=== PATIENT | male | born 1955 | race Caucasian/White ===

== ENCOUNTER 2016-08-17 13:22 | Outpatient (RCR) | payer MEDICARE, BC ==
[~2016-08-17 13:22] MED LIST: /MOXI40TA PO; ADVA230INH INH; ALB2.5NEB NEB; ALBU17IN INH; ALBU83IN INH; ALPR0.25 PO; ASPI81TA85 PO; ATOR1TAB21 PO; AUGM500T34 PO; AZIT250T3 PO; BUDE0.5S IN; BUDEPOW INH; CEFT500T3 PO; CEFU500T2 PO; CIAL5TAB PO; CLOT10TR MT; DIGO0.12 PO; FLUC10TA PO; GLUC500T PO; LEVA750T PO; LEVO500T PO; LEVO750T PO; LIPI20TA PO; LOTR52CA PO; METF500T PO; METO12TA PO; METO25TAB PO; MUCI600T34 PO; NITR4TASL SL; NYST50SS SS; ONETAB4 PO; PRED10PA PO; PRED10PA2 PO; PRED10TA PO; PRED10TA2 PO; PRED1TAB32 PO; PULM0.5S INH; PULM1SUS INH; SIMV20TA2 PO; SPIR1CAP IN; SYMB16INH INH; TIOTROPIUM INH; WELLTAB38 PO; XANA0.25 PO; XOPEAER IN; [UNRECOGNIZED DRUG - OTHER] INH; albuterol nebulizer INH
--- NOTE | 2016-09-13 09:53 | RADONC ---
RADIATION ONCOLOGY PROGRESS NOTE DATE: 09/12/2016 CHART NUMBER: [id number]. Mr. White has received a course of radiation therapy to his tonsil and oral cavity, which was just completed in November of 2015. Prior to initiation of radiation, less than a year ago, I sent the patient to his dentist and made clear to him, which is documented in the notes, in no uncertain terms the need for all dental work to be completed prior to initiation of radiation. We had discussed the risks of doing extraction following completion of radiation. The patient at that time then went to see his dental home care specialist and reported back to us that his teeth were in general good condition and there would be no foreseeable need for extraction in the near future. Because of this, we started radiation on 10/04/2015 and treated him through 11/21/2015, for a dose of 7000 cGy. Approximately a week or so ago, I received the first phone call asking me to give clearance to extract all his lower teeth. This is less than 9 months post completion of treatment. I am unclear at this point as to why, after just a few months, it is now believed he needs these extractions. I think this is highly risky. I did have a lengthy discussion with Dr. Shafer and expressed to her my concern at the risks of possible osteonecrosis, which can lead up to the need of resection of the jaw. This is particularly concerning to me in this patient because of his poor pulmonary functions. I think he would be at great risk at surgery, although of course I am not a surgeon. I expressed to Dr. Shafer my worries. Clearly, if the teeth have to be extracted and there are no options, then she needs to document clearly to the patient his risks and see if he wishes to assume that risk. I did stress however that all options should be utilized first to maintain healthy oral cavity in those teeth if possible. I am, of course, no oral surgeon and will defer to her as to her expertise with regards to overall health of these lower teeth. I expressed to her the need for great care if they do need to have some extractions done. The lower teeth would be within a rather high dose of radiation. Once again, in summary, I expressed to the patient's oral cavity physician the need for great diligence and caution in dealing with those lower teeth.
== END 2016-09-11 ==
LOC: M CR 13:22
PROVIDERS: ATTEND Internal Medicine
DX: Z51.89 Encounter for other specified aftercare (principal); J44.9 Chronic obstructive pulmonary disease, unspecified

== ENCOUNTER 2016-09-24 08:00 | Outpatient (RCR) | payer MEDICARE, BC | END 2016-10-09 | LOC: M CR 08:00 | PROVIDERS: ATTEND Internal Medicine | DX: Z51.89 Encounter for other specified aftercare (principal); J44.9 Chronic obstructive pulmonary disease, unspecified ==

== ENCOUNTER 2016-10-01 18:22 | Emergency (ER) | payer MEDICARE, BC ==
--- NOTE | 2016-10-01 20:37 | EDDOCDS ---
Physician Documentation [facility] Name: Ari White Age: 60 yrs Sex: Male : 1955 Arrival Date: 10/01/2016 Time: 18:22 Bed 13 Private MD: Vijay Disposition: 10/01/16 20:21 Discharged to Home/Self Care. Impression: Dysphagia. - Condition is Stable. - Discharge Instructions: Dysphagia, Esophageal Stricture. - Medication Reconciliation, Local Pharmacy Hours form. - Follow up: Vijay; When: Tomorrow; Reason: Continuance of care. Follow up: Keith Pina; When: 1 week; Reason: Further diagnostic work-up, To establish care. - Problem is an acute exacerbation. - Symptoms have improved. - Notes: USE THE SLIP PROVIDED TO SCHEDULE OUTPATIENT CT SCANS. COORDINATE WITH DR. LUNA'S OFFICE FOR ANY REQUIRED PRIOR AUTHORIZATIONS. CALL THE NUMBER PROVIDED IN THE AM TO SET UP AN APPOINTMENT WITH DR. PINA. Historical: - Allergies: No known drug Allergies; - Home Meds: 1. budesonide 0.5 mg/2 mL inhalation nbsp 2 mL 2 times per day 2. albuterol sulfate 2.5 mg /3 mL (0.083 %) Inhl nebu 4 times per day 3. Symbicort 160-4.5 mcg/actuation inhalation HFAA 2 puffs 2 times per day 4. Spiriva with HandiHaler 18 mcg Inhl CpDv 1 cap once daily 5. Ventolin HFA 90 mcg/actuation Nebulizer HFAA 1 puff as needed 6. Mucinex 600 mg oral Ta12 twice a day 7. amlodipine-benazepril 5-20 mg oral cap 1 cap once daily 8. metformin 500 mg Oral tab 1 tab 2 times per day 9. multivitamin Oral tab 1 tab daily 10. atorvastatin 40 mg oral tab 1 tab once daily 11. aspirin 81 mg Oral tab 1 tab once daily 12. prednisone 10 mg Oral tab once daily 13. Oxygen 2 liters continuous 14. bupropion HCl 150 mg Oral TbER 1 tab once daily 15. alprazolam 0.25 mg Oral tab 1 tab Daily as needed 16. azithromycin 250 mg Oral tab 1 tab once daily 17. metoprolol tartrate 25 mg Oral tab 0.5 tab 2 times per day - PMHx: Cancer, Prostate; cancer, throat; COPD; Hypercholesterolemia; Hypertension; - PSHx: CABG; Prostatectomy; rotator cuff; Cardiac bypass; Valve replacement; - Social history: Smoking status: Patient states was never smoker of tobacco. No barriers to communication noted, The patient speaks fluent [place], Speaks appropriately for age. - Family history: Not pertinent. - : The pt / caregiver states he / she is not on anticoagulants. Home medication list is obtained from the patient, family members. - Exposure Risk Screening:: None identified. Vital Signs: 10/01 18:23 BP 162 / 71; Pulse 77; Resp 16; Temp 98.1(O); Pulse Ox 100% on 3.0 lpm NC; Weight 68.04 lr2 kg / 150 lbs (R); Height 5 ft. 7 in. (170.18 cm) (R); Pain 7/10; 20:34 BP 131 / 62; Pulse 64; Resp 18 S; Temp 97.9(O); Pulse Ox 96% on R/A; af2 18:23 Body Mass Index 23.49 (68.04 kg, 170.18 cm) lr2 MDM: 19:46 BMP Ordered. EDMS 19:55 Financial registration complete. zo 19:57 [facility] Payment Agreement was scanned into [employer] and attached to record. zo Signatures: Dispatcher [employer] EDMS Erica Resendez Matthew, DO DO mm11 Jerel Nunez,RN RN Unique Clemons RN RN af2 The chart was reviewed and I authenticate all verbal orders and agree with the evaluation and treatment provided.Attachments: 19:57 [facility] Payment Agreement zo MTDD
--- NOTE | 2016-10-01 20:37 | EDDOCDS ---
Nurse's Notes [facility] Name: Ari White Age: 60 yrs Sex: Male : 1955 Arrival Date: 10/01/2016 Time: 18:22 Bed 13 Private MD: Vijay Diagnosis: Dysphagia Presentation: 10/01 18:26 Red Flag criteria, patient assessed and is suitable to finish the RCE Process. Patient ml6 to move to room 13 after triage. 18:26 Presenting complaint: states: Reports that patient has been having difficulty jmb swallowing. Patient reports that food sets in sternum and has bad chest pain from throat down. Patient reports has been present for a few days. Patient denies calling primary care provider. Onset: The symptoms/episode began/occurred 3 day(s) ago. This patient has not experienced a previous allergic reaction. Anaphylaxis evaluation, the patient reports or I have noted the following symptoms which indicate a significant risk of anaphylaxis: no signs or symptoms of anaphylaxis were noted. Adult Sepsis Screening: The patient does not have new or worsening altered mentation. Patient's respiratory rate is less than 22. Systolic blood pressure is greater than 100. Patient has a qSOFA score of 0- Negative Sepsis Screen. Suicide/Homicide risk assessment- the patient denies having any suicidal and/or homicidal ideations and does not present with any other emotional, behavioral or mental health complaints. Status: Patient is not a creative services director or dependent. Transition of care: patient was not received from another setting of care. 18:26 Acuity: CHANCE Level 3 b 18:26 Method Of Arrival: Wheelchair b Triage Assessment: 18:30 General: Appears in no apparent distress. Pain: Denies pain. HIV screening NA for this jmb visit Offered previously. Neurological: Level of Consciousness is awake, alert, obeys commands, Oriented to person, place, time, Speech is normal, Facial symmetry appears normal, Facial symmetry: tongue is midline. Respiratory: Airway is patent Respiratory effort is even, unlabored, Respiratory pattern is regular, symmetrical, Reports no respiratory complaints. Derm: Skin is pink, warm & dry. Musculoskeletal: Range of motion intact in all extremities. Historical: - Allergies: No known drug Allergies; - Home Meds: 1. budesonide 0.5 mg/2 mL inhalation nbsp 2 mL 2 times per day 2. albuterol sulfate 2.5 mg /3 mL (0.083 %) Inhl nebu 4 times per day 3. Symbicort 160-4.5 mcg/actuation inhalation HFAA 2 puffs 2 times per day 4. Spiriva with HandiHaler 18 mcg Inhl CpDv 1 cap once daily 5. Ventolin HFA 90 mcg/actuation Nebulizer HFAA 1 puff as needed 6. Mucinex 600 mg oral Ta12 twice a day 7. amlodipine-benazepril 5-20 mg oral cap 1 cap once daily 8. metformin 500 mg Oral tab 1 tab 2 times per day 9. multivitamin Oral tab 1 tab daily 10. atorvastatin 40 mg oral tab 1 tab once daily 11. aspirin 81 mg Oral tab 1 tab once daily 12. prednisone 10 mg Oral tab once daily 13. Oxygen 2 liters continuous 14. bupropion HCl 150 mg Oral TbER 1 tab once daily 15. alprazolam 0.25 mg Oral tab 1 tab Daily as needed 16. azithromycin 250 mg Oral tab 1 tab once daily 17. metoprolol tartrate 25 mg Oral tab 0.5 tab 2 times per day - PMHx: Cancer, Prostate; cancer, throat; COPD; Hypercholesterolemia; Hypertension; - PSHx: CABG; Prostatectomy; rotator cuff; Cardiac bypass; Valve replacement; - Social history: Smoking status: Patient states was never smoker of tobacco. No barriers to communication noted, The patient speaks fluent Cook Islander, Speaks appropriately for age. - Family history: Not pertinent. - : The pt / caregiver states he / she is not on anticoagulants. Home medication list is obtained from the patient, family members. - Exposure Risk Screening:: None identified. Screenin:02 Screening information is obtained from the patient. Fall risk: No risks identified. hs1 Assistance ADL's: requires no assistance with activities of daily living. Abuse/DV Screen: The patient / caregiver reports he/she is: not in a situation that causes fear, pain or injury. Nutritional screening: No deficits noted. Advance Directives: There is no active DNR order. home support is adequate. Assessment: 19:01 General: Appears in no apparent distress, comfortable, Behavior is appropriate for age, hs1 cooperative. Neurological: No deficits noted. Respiratory: Breath sounds are clear bilaterally. Respiratory: Denies shortness of breath. GI: other Patient able to swallow with no issues at present. Patient states feeling much better at this time. Denies nausea. 19:12 General: Appears in no apparent distress, comfortable, Behavior is appropriate for age, af2 cooperative, Assumed care of pt at this time, pt states that he is feeling much better and wishes to return home. . Respiratory: Airway is patent Respiratory effort is even, unlabored. Vital Signs: 18:23 BP 162 / 71; Pulse 77; Resp 16; Temp 98.1(O); Pulse Ox 100% on 3.0 lpm NC; Weight 68.04 lr2 kg (R); Height 5 ft. 7 in. (170.18 cm) (R); Pain 7/10; 20:34 BP 131 / 62; Pulse 64; Resp 18 S; Temp 97.9(O); Pulse Ox 96% on R/A; af2 18:23 Body Mass Index 23.49 (68.04 kg, 170.18 cm) lr2 Vitals: 18:22 RN notified that patient meets Red Flag criteria. lr2 18:23 Log In Time: October 01, 2016 at 18:22. lr2 ED Course: 18:23 Patient visited by Maria E Stratton. lr2 18:23 Patient moved to Waiting lr2 18:25 Vijay is Private Physician. lr2 18:27 Triage Initiated jmb 18:28 Patient moved to Pre RCE ml6 18:31 Maureen Andrade, RN is Primary Nurse. jmb 18:31 Patient moved to 13 jmb 18:58 Unique Tobias,RN is Primary Nurse. af2 19:13 The patient / caregiver is instructed regarding the plan of care and ED course. Patient af2 has correct armband on for positive identification. 19:13 No IV's were initiated during this patient's visit. No procedures done that require af2 assistance. 19:14 Patient visited by Unique Tobias,RAYMOND. af2 19:19 Andrade Bowles DO is Attending Physician. mm11 19:19 Patient visited by Andrade Bowles DO. mm11 19:44 Patient visited by Andrade Bowles DO. mm11 19:57 [facility] Payment Agreement was scanned into [employer] and attached to record. zo 20:18 BMP Sent. jmv 20:21 Patient visited by Andrade Bowles DO. mm11 20:21 Vijay is Referral Physician. mm11 20:23 Keith Pina is Referral Physician. mm11 Order Results: There are currently no results for this order. Outcome: 20:21 Discharge ordered by Provider. mm11 20:35 Discharge Assessment: Patient awake, alert and oriented x 3. No cognitive and/or af2 functional deficits noted. Patient verbalized understanding of disposition instructions. patient administered narcotics - no. The following High Risk Discharge criteria are identified: None. Discharged to home ambulatory. Condition: stable. Discharge instructions given to patient, significant other, Instructed on discharge instructions, follow up and referral plans. Demonstrated understanding of instructions, Pt was receptive of discharge instructions/ teaching. No special radiology studies were completed. Property :Personal belongings accompany Pt. 20:35 Patient left the ED. af2 Signatures: Erica Resendez Matthew, DO DO mm11 Andrade Olguin, RN RN ml6 Maureen Andrade RN RN hs1 Jerel NunezRN RN jmb Unique Tobias RN RN af2 Jose Estrella, TAWNYA E LEARNING SPECIALIST jmv Maria E Stratton lr2 Corrections: (The following items were deleted from the chart) 18:25 18:23 BP 162 / 71; Pulse 77bpm; Resp 16bpm; Pulse Ox 100%; Temp 98.1F Oral; 68.04 kg lr2 Reported; Height 5 ft. 7 in. Reported; BMI: 23.4; Pain 7/10; lr2 MTDD
[2016-10-01 20:46] LABS: ANION GAP 8 MEQ/L (8-16); BLOOD UREA NITROGEN 7 MG/DL (7-18); CALCIUM LEVEL 9.4 MG/DL (8.5-10.1); CARBON DIOXIDE LEVEL 35 MEQ/L (21-32); CHLORIDE LEVEL 103 MEQ/L (98-107); CREATININE FOR GFR 0.75 MG/DL (0.70-1.30); GLOMERULAR FILTRATION RATE > 60.0 (>56); GLUCOSE, FASTING 94 MG/DL (70-105); POTASSIUM SERUM 4.1 MEQ/L (3.5-5.1); SODIUM LEVEL 146 MEQ/L (136-145)
--- NOTE | 2016-10-03 21:36 | EDDOCDS ---
Nurse's Notes [facility] Name: Ari White Age: 60 yrs Sex: Male : 1955 Arrival Date: 10/01/2016 Time: 18:22 Bed 13 Private MD: Vijay Diagnosis: Dysphagia Presentation: 10/01 18:26 Red Flag criteria, patient assessed and is suitable to finish the RCE Process. Patient ml6 to move to room 13 after triage. 18:26 Presenting complaint: states: Reports that patient has been having difficulty jmb swallowing. Patient reports that food sets in sternum and has bad chest pain from throat down. Patient reports has been present for a few days. Patient denies calling primary care provider. Onset: The symptoms/episode began/occurred 3 day(s) ago. This patient has not experienced a previous allergic reaction. Anaphylaxis evaluation, the patient reports or I have noted the following symptoms which indicate a significant risk of anaphylaxis: no signs or symptoms of anaphylaxis were noted. Adult Sepsis Screening: The patient does not have new or worsening altered mentation. Patient's respiratory rate is less than 22. Systolic blood pressure is greater than 100. Patient has a qSOFA score of 0- Negative Sepsis Screen. Suicide/Homicide risk assessment- the patient denies having any suicidal and/or homicidal ideations and does not present with any other emotional, behavioral or mental health complaints. Status: Patient is not a client service associate or dependent. Transition of care: patient was not received from another setting of care. 18:26 Acuity: CHANCE Level 3 b 18:26 Method Of Arrival: Wheelchair b Triage Assessment: 18:30 General: Appears in no apparent distress. Pain: Denies pain. HIV screening NA for this jmb visit Offered previously. Neurological: Level of Consciousness is awake, alert, obeys commands, Oriented to person, place, time, Speech is normal, Facial symmetry appears normal, Facial symmetry: tongue is midline. Respiratory: Airway is patent Respiratory effort is even, unlabored, Respiratory pattern is regular, symmetrical, Reports no respiratory complaints. Derm: Skin is pink, warm & dry. Musculoskeletal: Range of motion intact in all extremities. Historical: - Allergies: No known drug Allergies; - Home Meds: 1. budesonide 0.5 mg/2 mL inhalation nbsp 2 mL 2 times per day 2. albuterol sulfate 2.5 mg /3 mL (0.083 %) Inhl nebu 4 times per day 3. Symbicort 160-4.5 mcg/actuation inhalation HFAA 2 puffs 2 times per day 4. Spiriva with HandiHaler 18 mcg Inhl CpDv 1 cap once daily 5. Ventolin HFA 90 mcg/actuation Nebulizer HFAA 1 puff as needed 6. Mucinex 600 mg oral Ta12 twice a day 7. amlodipine-benazepril 5-20 mg oral cap 1 cap once daily 8. metformin 500 mg Oral tab 1 tab 2 times per day 9. multivitamin Oral tab 1 tab daily 10. atorvastatin 40 mg oral tab 1 tab once daily 11. aspirin 81 mg Oral tab 1 tab once daily 12. prednisone 10 mg Oral tab once daily 13. Oxygen 2 liters continuous 14. bupropion HCl 150 mg Oral TbER 1 tab once daily 15. alprazolam 0.25 mg Oral tab 1 tab Daily as needed 16. azithromycin 250 mg Oral tab 1 tab once daily 17. metoprolol tartrate 25 mg Oral tab 0.5 tab 2 times per day - PMHx: Cancer, Prostate; cancer, throat; COPD; Hypercholesterolemia; Hypertension; - PSHx: CABG; Prostatectomy; rotator cuff; Cardiac bypass; Valve replacement; - Social history: Smoking status: Patient states was never smoker of tobacco. No barriers to communication noted, The patient speaks fluent Bangladeshi, Speaks appropriately for age. - Family history: Not pertinent. - : The pt / caregiver states he / she is not on anticoagulants. Home medication list is obtained from the patient, family members. - Exposure Risk Screening:: None identified. Screenin:02 Screening information is obtained from the patient. Fall risk: No risks identified. hs1 Assistance ADL's: requires no assistance with activities of daily living. Abuse/DV Screen: The patient / caregiver reports he/she is: not in a situation that causes fear, pain or injury. Nutritional screening: No deficits noted. Advance Directives: There is no active DNR order. home support is adequate. Assessment: 19:01 General: Appears in no apparent distress, comfortable, Behavior is appropriate for age, hs1 cooperative. Neurological: No deficits noted. Respiratory: Breath sounds are clear bilaterally. Respiratory: Denies shortness of breath. GI: other Patient able to swallow with no issues at present. Patient states feeling much better at this time. Denies nausea. 19:12 General: Appears in no apparent distress, comfortable, Behavior is appropriate for age, af2 cooperative, Assumed care of pt at this time, pt states that he is feeling much better and wishes to return home. . Respiratory: Airway is patent Respiratory effort is even, unlabored. Vital Signs: 18:23 BP 162 / 71; Pulse 77; Resp 16; Temp 98.1(O); Pulse Ox 100% on 3.0 lpm NC; Weight 68.04 lr2 kg (R); Height 5 ft. 7 in. (170.18 cm) (R); Pain 7/10; 20:34 BP 131 / 62; Pulse 64; Resp 18 S; Temp 97.9(O); Pulse Ox 96% on R/A; af2 18:23 Body Mass Index 23.49 (68.04 kg, 170.18 cm) lr2 Vitals: 18:22 RN notified that patient meets Red Flag criteria. lr2 18:23 Log In Time: October 01, 2016 at 18:22. lr2 ED Course: 18:23 Patient visited by Maria E Stratton. lr2 18:23 Patient moved to Waiting lr2 18:25 Vijay is Private Physician. lr2 18:27 Triage Initiated jmb 18:28 Patient moved to Pre RCE ml6 18:31 Maureen Andrade, RN is Primary Nurse. jmb 18:31 Patient moved to 13 jmb 18:58 Unique Tobias,RN is Primary Nurse. af2 19:13 The patient / caregiver is instructed regarding the plan of care and ED course. Patient af2 has correct armband on for positive identification. 19:13 No IV's were initiated during this patient's visit. No procedures done that require af2 assistance. 19:14 Patient visited by Unique Tobias,RAYMOND. af2 19:19 Andrade Bowles DO is Attending Physician. mm11 19:19 Patient visited by Andrade Bowles DO. mm11 19:44 Patient visited by Andrade Bowles DO. mm11 19:57 [facility] Payment Agreement was scanned into [employer] and attached to record. zo 20:18 BMP Sent. jmv 20:21 Patient visited by Andrade Bowles DO. mm11 20:21 Vijay is Referral Physician. mm11 20:23 Keith Pina is Referral Physician. [facility] 10/02 10:19 T-Sheet-- Draft Copy was scanned into [employer] and attached to record. gb Order Results: Lab Order: BMP; [facility] 10/01/16 20:16 Test: GLUCOSE, FASTING; Value: 94; Range: 70-105; Units: MG/DL; Status: F Test: BLOOD UREA NITROGEN; Value: 7; Range: 7-18; Units: MG/DL; Status: F Test: CREATININE FOR GFR; Value: 0.75; Range: 0.70-1.30; Units: MG/DL; Status: F Test: GLOMERULAR FILTRATION RATE; Value: > 60.0; Range: >56; Status: F Test: SODIUM LEVEL; Value: 146; Range: 136-145; Abnormal: Above high normal; Units: MEQ/L; Status: F Test: POTASSIUM SERUM; Value: 4.1; Range: 3.5-5.1; Units: MEQ/L; Status: F Test: CHLORIDE LEVEL; Value: 103; Range: 98-107; Units: MEQ/L; Status: F Test: CARBON DIOXIDE LEVEL; Value: 35; Range: 21-32; Abnormal: Above high normal; Units: MEQ/L; Status: F Test: ANION GAP; Value: 8; Range: 8-16; Units: MEQ/L; Status: F Test: CALCIUM LEVEL; Value: 9.4; Range: 8.5-10.1; Units: MG/DL; Status: F Test Note: ; Units are mL/min/1.73 m2 Chronic Kidney Disease Staging per NKF: Stage I & II GFR >=60 Normal to Mildly Decreased Stage III GFR 30-59 Moderately Decreased Stage IV GFR 15-29 Severely Decreased Stage V GFR <15 Very Little GFR Left ESRD GFR <15 on DRILL SERGEANT Outcome: 10/01 20:21 Discharge ordered by Provider. 11 20:35 Discharge Assessment: Patient awake, alert and oriented x 3. No cognitive and/or af2 functional deficits noted. Patient verbalized understanding of disposition instructions. patient administered narcotics - no. The following High Risk Discharge criteria are identified: None. Discharged to home ambulatory. Condition: stable. Discharge instructions given to patient, significant other, Instructed on discharge instructions, follow up and referral plans. Demonstrated understanding of instructions, Pt was receptive of discharge instructions/ teaching. No special radiology studies were completed. Property :Personal belongings accompany Pt. 20:35 Patient left the ED. af2 Signatures: Yoana Sena, Reg Reg gb Erica Resendez Andrade Jhaveri, DO mm11 Andrade Olguin, RN RN ml6 Maureen Andrade RN RN hs1 Jerel Nunez RN RN jmb Unique Tobias RN RN af2 Jose Estrella, TAWNYA DISPLAY AND BANNER DESIGNER jmv Maria E Stratton lr2 Corrections: (The following items were deleted from the chart) 18:25 18:23 BP 162 / 71; Pulse 77bpm; Resp 16bpm; Pulse Ox 100%; Temp 98.1F Oral; 68.04 kg lr2 Reported; Height 5 ft. 7 in. Reported; BMI: 23.4; Pain 7/10; lr2 Chart Complete MTDD
--- NOTE | 2016-10-03 21:36 | EDDOCDS ---
Physician Documentation [facility] Name: Ari White Age: 60 yrs Sex: Male : 1955 Arrival Date: 10/01/2016 Time: 18:22 Bed 13 Private MD: Vijay Disposition: 10/01/16 20:21 Discharged to Home/Self Care. Impression: Dysphagia. - Condition is Stable. - Discharge Instructions: Dysphagia, Esophageal Stricture. - Medication Reconciliation, Local Pharmacy Hours form. - Follow up: Vijay; When: Tomorrow; Reason: Continuance of care. Follow up: Keith Pina; When: 1 week; Reason: Further diagnostic work-up, To establish care. - Problem is an acute exacerbation. - Symptoms have improved. - Notes: USE THE SLIP PROVIDED TO SCHEDULE OUTPATIENT CT SCANS. COORDINATE WITH DR. LUNA'S OFFICE FOR ANY REQUIRED PRIOR AUTHORIZATIONS. CALL THE NUMBER PROVIDED IN THE AM TO SET UP AN APPOINTMENT WITH DR. PINA. Historical: - Allergies: No known drug Allergies; - Home Meds: 1. budesonide 0.5 mg/2 mL inhalation nbsp 2 mL 2 times per day 2. albuterol sulfate 2.5 mg /3 mL (0.083 %) Inhl nebu 4 times per day 3. Symbicort 160-4.5 mcg/actuation inhalation HFAA 2 puffs 2 times per day 4. Spiriva with HandiHaler 18 mcg Inhl CpDv 1 cap once daily 5. Ventolin HFA 90 mcg/actuation Nebulizer HFAA 1 puff as needed 6. Mucinex 600 mg oral Ta12 twice a day 7. amlodipine-benazepril 5-20 mg oral cap 1 cap once daily 8. metformin 500 mg Oral tab 1 tab 2 times per day 9. multivitamin Oral tab 1 tab daily 10. atorvastatin 40 mg oral tab 1 tab once daily 11. aspirin 81 mg Oral tab 1 tab once daily 12. prednisone 10 mg Oral tab once daily 13. Oxygen 2 liters continuous 14. bupropion HCl 150 mg Oral TbER 1 tab once daily 15. alprazolam 0.25 mg Oral tab 1 tab Daily as needed 16. azithromycin 250 mg Oral tab 1 tab once daily 17. metoprolol tartrate 25 mg Oral tab 0.5 tab 2 times per day - PMHx: Cancer, Prostate; cancer, throat; COPD; Hypercholesterolemia; Hypertension; - PSHx: CABG; Prostatectomy; rotator cuff; Cardiac bypass; Valve replacement; - Social history: Smoking status: Patient states was never smoker of tobacco. No barriers to communication noted, The patient speaks fluent [place], Speaks appropriately for age. - Family history: Not pertinent. - : The pt / caregiver states he / she is not on anticoagulants. Home medication list is obtained from the patient, family members. - Exposure Risk Screening:: None identified. Vital Signs: 10/01 18:23 BP 162 / 71; Pulse 77; Resp 16; Temp 98.1(O); Pulse Ox 100% on 3.0 lpm NC; Weight 68.04 lr2 kg / 150 lbs (R); Height 5 ft. 7 in. (170.18 cm) (R); Pain 7/10; 20:34 BP 131 / 62; Pulse 64; Resp 18 S; Temp 97.9(O); Pulse Ox 96% on R/A; af2 18:23 Body Mass Index 23.49 (68.04 kg, 170.18 cm) lr2 MDM: 19:46 BMP Ordered. EDMS 19:55 Financial registration complete. zo 19:57 [facility] Payment Agreement was scanned into [employer] and attached to record. zo 10/02 10:19 T-Sheet-- Draft Copy was scanned into [employer] and attached to record. gb Signatures: Dispatcher [employer] EDHI Yoana Sena, Reg Reg gb Mal, Andrade Delcid DO DO mm11 Jerel Nunez RN RN Unique Clemons RN RN af2 The chart was reviewed and I authenticate all verbal orders and agree with the evaluation and treatment provided.Attachments: 10/01 19:57 [facility] Payment Agreement zo 10/02 10:19 T-Sheet-- Draft Copy gb Chart Complete MTDD
--- NOTE | 2016-10-03 21:36 | EDDOCDS ---
Physician Documentation [facility] Name: Ari White Age: 60 yrs Sex: Male : 1955 Arrival Date: 10/01/2016 Time: 18:22 Bed 13 Private MD: Vijay Disposition: 10/01/16 20:21 Discharged to Home/Self Care. Impression: Dysphagia. - Condition is Stable. - Discharge Instructions: Dysphagia, Esophageal Stricture. - Medication Reconciliation, Local Pharmacy Hours form. - Follow up: Vijay; When: Tomorrow; Reason: Continuance of care. Follow up: Keith Pina; When: 1 week; Reason: Further diagnostic work-up, To establish care. - Problem is an acute exacerbation. - Symptoms have improved. - Notes: USE THE SLIP PROVIDED TO SCHEDULE OUTPATIENT CT SCANS. COORDINATE WITH DR. LUNA'S OFFICE FOR ANY REQUIRED PRIOR AUTHORIZATIONS. CALL THE NUMBER PROVIDED IN THE AM TO SET UP AN APPOINTMENT WITH DR. PINA. Historical: - Allergies: No known drug Allergies; - Home Meds: 1. budesonide 0.5 mg/2 mL inhalation nbsp 2 mL 2 times per day 2. albuterol sulfate 2.5 mg /3 mL (0.083 %) Inhl nebu 4 times per day 3. Symbicort 160-4.5 mcg/actuation inhalation HFAA 2 puffs 2 times per day 4. Spiriva with HandiHaler 18 mcg Inhl CpDv 1 cap once daily 5. Ventolin HFA 90 mcg/actuation Nebulizer HFAA 1 puff as needed 6. Mucinex 600 mg oral Ta12 twice a day 7. amlodipine-benazepril 5-20 mg oral cap 1 cap once daily 8. metformin 500 mg Oral tab 1 tab 2 times per day 9. multivitamin Oral tab 1 tab daily 10. atorvastatin 40 mg oral tab 1 tab once daily 11. aspirin 81 mg Oral tab 1 tab once daily 12. prednisone 10 mg Oral tab once daily 13. Oxygen 2 liters continuous 14. bupropion HCl 150 mg Oral TbER 1 tab once daily 15. alprazolam 0.25 mg Oral tab 1 tab Daily as needed 16. azithromycin 250 mg Oral tab 1 tab once daily 17. metoprolol tartrate 25 mg Oral tab 0.5 tab 2 times per day - PMHx: Cancer, Prostate; cancer, throat; COPD; Hypercholesterolemia; Hypertension; - PSHx: CABG; Prostatectomy; rotator cuff; Cardiac bypass; Valve replacement; - Social history: Smoking status: Patient states was never smoker of tobacco. No barriers to communication noted, The patient speaks fluent [place], Speaks appropriately for age. - Family history: Not pertinent. - : The pt / caregiver states he / she is not on anticoagulants. Home medication list is obtained from the patient, family members. - Exposure Risk Screening:: None identified. Vital Signs: 10/01 18:23 BP 162 / 71; Pulse 77; Resp 16; Temp 98.1(O); Pulse Ox 100% on 3.0 lpm NC; Weight 68.04 lr2 kg / 150 lbs (R); Height 5 ft. 7 in. (170.18 cm) (R); Pain 7/10; 20:34 BP 131 / 62; Pulse 64; Resp 18 S; Temp 97.9(O); Pulse Ox 96% on R/A; af2 18:23 Body Mass Index 23.49 (68.04 kg, 170.18 cm) lr2 MDM: 19:46 BMP Ordered. EDMS 19:55 Financial registration complete. zo 19:57 [facility] Payment Agreement was scanned into [employer] and attached to record. zo 10/02 10:19 T-Sheet-- Draft Copy was scanned into [employer] and attached to record. gb Signatures: Dispatcher [employer] EDHI Yoana Sena, Reg Reg gb Mal, Andrade Delcid DO DO mm11 Jerel Nunez RN RN Unique Clemons RN RN af2 The chart was reviewed and I authenticate all verbal orders and agree with the evaluation and treatment provided.Attachments: 10/01 19:57 [facility] Payment Agreement zo 10/02 10:19 T-Sheet-- Draft Copy gb Chart Complete MTDD
== END 2016-10-01 20:35 | disposition home or self-care (01) ==
LOC: M ED 18:22
DX: R13.10 Dysphagia, unspecified (principal); Z85.46 Personal history of malignant neoplasm of prostate; Z85.89 Personal history of malignant neoplasm of other organs and systems; J44.9 Chronic obstructive pulmonary disease, unspecified; E78.00 Pure hypercholesterolemia, unspecified; I10 Essential (primary) hypertension; Z95.1 Presence of aortocoronary bypass graft; Z95.2 Presence of prosthetic heart valve; Z79.82 Long term (current) use of aspirin; Z79.899 Other long term (current) drug therapy; Z99.81 Dependence on supplemental oxygen

== ENCOUNTER → 2016-10-19 | Outpatient (CLI) | payer MEDICARE, BC ==
[~2016-10-19] MED LIST changes: +E-Z PAQUE 60% w/v SUSP 355ML BOTTLE As Ordered ONE; +E-Z-GAS II EFFERVESCENT PACKET (SODIUM BICARB./CITRIC ACID/SIMETHICONE) As Ordered ONE; +E-Z-HD 98% w/w 340GM SUSP BTL As Ordered ONE
--- NOTE | 2016-10-19 10:30 | REP ---
DOUBLE CONTRAST ESOPHAGRAM: HISTORY: Dysphasia. History of radiation therapy for head and neck malignancy. FINDINGS: Patient is status post prior median sternotomy and aortic valve replacement. PA chest radiograph shows somewhat hyperinflated but otherwise clear lungs. There is vascular calcification in the carotid arteries bilaterally in the neck. The oropharyngeal phase of the barium swallow shows fairly prominent laryngeal reflux and several episodes of mild tracheal aspiration, one or two of which were associated with cough. No other motor discoordination of swallow is seen. The cervical and thoracic esophagus are morphologically intact. There are some tertiary esophageal contractions. Reflux was not witnessed. No hiatal hernia or stricture is seen. IMPRESSION: Mild motor discoordination of swallow with recurrent laryngeal reflux and intermittent mild tracheal aspiration occasionally engendering a cough response. Tertiary esophageal contractions. Otherwise negative. Signed by Bib Hsu MD 10/19/2016 10:45 A
== END ==
LOC: M RAD 08:46
PROVIDERS: ATTEND Physician Assistant Medical
DX: R13.10 Dysphagia, unspecified (principal); K21.9 Gastro-esophageal reflux disease without esophagitis

== ENCOUNTER → 2016-11-13 | Outpatient (CLI) | payer MEDICARE, BC ==
[~2016-11-13] VITALS: Ht 170.2 cm; Wt 68.9 kg
[~2016-11-13] MED LIST changes: -E-Z PAQUE 60% w/v SUSP 355ML BOTTLE As Ordered ONE; -E-Z-GAS II EFFERVESCENT PACKET (SODIUM BICARB./CITRIC ACID/SIMETHICONE) As Ordered ONE; -E-Z-HD 98% w/w 340GM SUSP BTL As Ordered ONE; +NS 1,000 ML IV SCH; +PHENYLephrine HCL 500 MCG/5 ML (100MCG/ML) SYRINGE (J2370) As Ordered ONE; +PROPOFOL 200 MG/20 ML VIAL As Ordered ONE
--- NOTE | 2016-11-13 11:22 | ROOR ---
Patient Name: Ari White Procedure Date: 11/13/2016 11:07 AM Date of : 1955 Age: 60 Room: [facility] Gender: Male Note Status: Finalized Procedure: Upper GI endoscopy Indications: Oral phase dysphagia, Oropharyngeal phase dysphagia, Neurogenic dysphagia Providers: Reji MARIE MD Referring MD: LOYDA LUNA JR, MD Requesting Provider: Medicines: Monitored Anesthesia Care Complications: No immediate complications. Procedure: Pre-Anesthesia Assessment: - The heart rate, respiratory rate, oxygen saturations, blood pressure, adequacy of pulmonary ventilation, and response to care were monitored throughout the procedure. The Endoscope was introduced through the mouth, and advanced to the second part of duodenum. The upper GI endoscopy was accomplished without difficulty. The patient tolerated the procedure well. Findings: The esophagus was normal. The stomach was normal. The examined duodenum was normal. No endoscopic abnormality was evident in the esophagus to explain the patient's complaint of dysphagia. It was decided, however, to proceed with dilation of the entire esophagus. The scope was withdrawn. Dilation was performed with a Roach dilator with no resistance at 50 Fr and 54 Fr. The dilation site was examined following endoscope reinsertion and showed no change. Impression: - Normal esophagus. - Normal stomach. - Normal examined duodenum. - No endoscopic esophageal abnormality to explain patient's dysphagia. Esophagus dilated with 50 and 54 F Roach dilator. - No specimens collected. Recommendation: - Observe patient's clinical course. Reji Marie MD Reji MARIE MD 11/13/2016 11:21:57 AM This report has been signed electronically. Number of Addenda: 0 Note Initiated On: 11/13/2016 11:07 AM Estimated Blood Loss: Estimated blood loss: none.
--- NOTE | 2016-11-13 12:09 | ROOR ---
Patient Name: Ari White Procedure Date: 11/13/2016 11:08 AM Date of : 1955 Age: 60 Room: [facility] Gender: Male Note Status: Finalized Procedure: Colonoscopy Indications: Screening for colorectal malignant neoplasm Providers: Reji ABRAHAM MD Referring MD: LOYDA LUNA JR, MD Requesting Provider: Medicines: Monitored Anesthesia Care Complications: No immediate complications. Procedure: Pre-Anesthesia Assessment: - The heart rate, respiratory rate, oxygen saturations, blood pressure, adequacy of pulmonary ventilation, and response to care were monitored throughout the procedure. The Colonoscope was introduced through the anus and advanced to the cecum, identified by appendiceal orifice and ileocecal valve. The colonoscopy was performed without difficulty. The patient tolerated the procedure well. The quality of the bowel preparation was fair, extensive lavage performed. Visualisation was fair. Findings: The perianal and digital rectal examinations were normal. (EXAM: Complete, PREP: Suboptimal) A 20 mm polyp was found in the mid ascending colon. The polyp was multi-lobulated and semi-pedunculated. The polyp was removed with a piecemeal technique using a hot snare. Resection and retrieval were complete. Area was tattooed with an injection of Sarika ink. Two sessile polyps were found in the sigmoid colon. The polyps were 4 to 6 mm in size. These polyps were removed with a hot snare. Resection and retrieval were complete. Multiple medium-mouthed diverticula were found in the sigmoid colon. Internal hemorrhoids were found during retroflexion. The hemorrhoids were moderate. Impression: - (EXAM: Complete, PREP: Suboptimal) - One 20 mm polyp in the mid ascending colon, removed piecemeal using a hot snare. Resected and retrieved. Tattooed. - Two 4 to 6 mm polyps in the sigmoid colon, removed with a hot snare. Resected and retrieved. - Diverticulosis in the sigmoid colon. - Mild radiation proctitis and small Internal hemorrhoids are seen. Recommendation: - Repeat colonoscopy in 4 months for surveillance after piecemeal polypectomy. - No ibuprofen, naproxen, or other non-steroidal anti-inflammatory drugs for 10 days after polyp removal. Reji Abraham MD Reji ABRAHAM MD 11/13/2016 12:09:00 PM This report has been signed electronically. Number of Addenda: 0 Note Initiated On: 11/13/2016 11:08 AM Estimated Blood Loss: Estimated blood loss: none.
[2016-11-13 12:44] VITALS: BP 132/78
== END | disposition home or self-care (01) ==
LOC: M OPP 09:11
PROVIDERS: ATTEND Internal Medicine Gastroenterology
DX: Z12.11 Encounter for screening for malignant neoplasm of colon (principal); D12.2 Benign neoplasm of ascending colon; D12.5 Benign neoplasm of sigmoid colon; K57.30 Diverticulosis of large intestine without perforation or abscess without bleeding; R13.12 Dysphagia, oropharyngeal phase; I25.10 Atherosclerotic heart disease of native coronary artery without angina pectoris; I10 Essential (primary) hypertension; J44.9 Chronic obstructive pulmonary disease, unspecified; E78.00 Pure hypercholesterolemia, unspecified; E11.9 Type 2 diabetes mellitus without complications; Z95.5 Presence of coronary angioplasty implant and graft; Z79.52 Long term (current) use of systemic steroids; Z79.899 Other long term (current) drug therapy; Z79.82 Long term (current) use of aspirin; Z79.84 Long term (current) use of oral hypoglycemic drugs; Z79.51 Long term (current) use of inhaled steroids
CPT/HCPCS: 43450; 45381; 45385; 88305; 99156; 99157; J2370

== ENCOUNTER → 2016-12-10 | Outpatient (CLI) | payer MEDICARE, BC ==
[~2016-12-10] MED LIST changes: +ISOVUE-370 76% 100ML VIAL (Q9967) As Ordered ONE; -NS 1,000 ML IV SCH; -PHENYLephrine HCL 500 MCG/5 ML (100MCG/ML) SYRINGE (J2370) As Ordered ONE; -PROPOFOL 200 MG/20 ML VIAL As Ordered ONE
--- NOTE | 2016-12-10 16:12 | REP ---
CT CHEST WITH CONTRAST: REASON: History of nasopharyngeal cancer. COMPARISON: Multiple, all reviewed. The latest of which is dated 07/05/2016, CT angio chest. CONTRAST: 100 mL [id number]. There is no mediastinal or hilar adenopathy. There are no pleural or pericardial effusions. The imaged upper abdomen is within normal limits. There is a left renal cyst status quo. The imaged osseous structures show previous median sternotomy and spinal degenerative changes status quo. Evaluation of the lung ríos again shows chronic emphysematous changes with parenchymal bulla. And scattered millimeter sized nodules. The more patchy appearing densities in the inferior lingula and inferior left upper lobe along with similar findings in the right middle lobe and right lower lobe have significantly improved showing evidence of minimal fibrotic change as the residual. There is an unchanged nodule in the superior segment of the right lower lobe which has increased in size today measuring 7 mm previously 6 mm and appears to be more dense. That nodule represented a change from the 12/07/[address] when it first discovered on the chest CT of 06/06/2016. Is increased size and density is based on comparison to that 06/06/2016 exam. IMPRESSION:1. Right lower lobe nodule as described above. Due to its potential growth and according to the revised Fleischner's society criteria the lesion represents a category 4A lesion which requires a 3 month followup with consideration made for PET CT at this time. 2. Chronic lung field changes and other findings as described above. Signed by Clarence Quintanilla DO 12/10/2016 04:53 P
== END ==
LOC: M RAD 10:15
PROVIDERS: ATTEND Internal Medicine Medical Oncology
DX: C09.9 Malignant neoplasm of tonsil, unspecified (principal); R91.8 Other nonspecific abnormal finding of lung field
CPT/HCPCS: 71260; Q9967

== ENCOUNTER → 2016-12-13 | Outpatient (CLI) | payer MEDICARE, BC ==
[~2016-12-13] MED LIST changes: -ISOVUE-370 76% 100ML VIAL (Q9967) As Ordered ONE
--- NOTE | 2016-12-13 15:30 | RADONC ---
RADIATION ONCOLOGY FOLLOWUP NOTE DATE: 12/13/2016 CHART NUMBER: [id number] DIAGNOSIS: Left tonsil cancer. STAGE: MONAE, [id number]. ECOG PERFORMANCE STATUS: 3. FOLLOWUP NOTE: Mr. 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 The patient presents today reporting that he continues to have marked shortness of breath. He is on nasal oxygen on all times. He has severe emphysema and he reports that a recent CT scan showed a 7 mm nodule in the superior segment of his right lower lobe. This had increased slightly from [address] scan dated June 06, 2016. The patient also is complaining of some rotten teeth which have broken off. He is having no oral cavity pain or difficulty swallowing. His teeth do not hurt. The patient's review of systems is positive for significant shortness of breath and the use of nasal oxygen. This is causing significant physical limitations. He has rotten and broken teeth but the review of systems is otherwise noncontributory. He denies nausea, vomiting, fevers, chills, night sweats, diplopia, headaches, anxiety or depression, anorexia, weight loss, visual disturbances, chest pain, urinary or bowel difficulties, bone pain or neurological problems. PHYSICAL EXAMINATION: The patient is a chronically ill-appearing white male who is caring and oxygen tank on a walker. He has got nasal oxygen on. HEENT: Exam is normocephalic, atraumatic. Extraocular movements are intact. Oral cavity reveals several rotten teeth. There is no evidence of nodularity, ulceration, residual or recurrent disease. There is no palpable preauricular, cervical, supraclavicular, infraclavicular lymphadenopathy present. ASSESSMENT: The patient is clinically ETELVINA at this time. He is just seen by Dr. Malave and is following Dr. Malave every 3 months. He is undergoing full laryngoscopic evaluation and Dr. Malave has just told him that there is no evidence of disease. In addition, he is scheduled see his medical oncologist, Dr. Ray, next week and is seeing him regularly. The radiologist has recommended a 3-month followup with a CT scan of the chest. At this time that small nodule is growing exceedingly slowly. It is too small and at this growth rate unlikely to chicken picker any PET material and I concur with a routine 3-month CT followup. I had a very lengthy discussion with this patient and his . At this time, I have made clear that I think pulling of his teeth or any significant dental work would be quite risky. Clearly with the patient's pulmonary functions he is not a candidate for anesthesia and surgery. Although the likelihood is that extractions can be undertaken and dental work can be undertaken without difficulty, should he run into problems requiring surgery on the jaw, which is a possibility since radio-osteonecrosis is a known side effect of high-dose radiation in patients that undergo dental work, then we would be in trouble. I advised him to do everything possible to maintain his teeth. Clearly if there is no choice and dental work his only option then of course that is a different story. He is aware of the risks. Once again in summary, the patient is clinically ETELVINA at this time. I recommend followup with a future CT scan of his lung nodule. I recommend conservative management of his teeth as long as they are not causing him any quality of life issues. cc: MD Gregg Bazzi MD [facility]ITALKetty
== END ==
LOC: M ONCR 13:54
PROVIDERS: ATTEND Radiology Radiation Oncology
DX: C09.9 Malignant neoplasm of tonsil, unspecified (principal)

== ENCOUNTER 2016-12-19 12:30 | Outpatient (RCR) | payer MEDICARE, BC | END 2017-01-09 | LOC: M CR 12:30 | PROVIDERS: ATTEND Internal Medicine | DX: Z51.89 Encounter for other specified aftercare (principal); J44.9 Chronic obstructive pulmonary disease, unspecified ==

== ENCOUNTER 2017-02-04 12:56 | Outpatient (RCR) | payer MEDICARE, BC ==
[~2017-02-04 12:56] MED LIST changes: +AZIT-12 PO; -AZIT250T3 PO; -LEVA750T PO; +LEVA750T7 PO; -METF500T PO; +METF500T13 PO; -METO12TA PO; +METO1TAB87 PO; +MUCI600T37 PO
== END 2017-02-08 ==
LOC: M CR 12:56
PROVIDERS: ATTEND Internal Medicine
DX: Z51.89 Encounter for other specified aftercare (principal); J44.9 Chronic obstructive pulmonary disease, unspecified

== ENCOUNTER → 2017-03-20 | Outpatient (CLI) | payer MEDICARE, BC ==
--- NOTE | 2017-03-21 09:47 | REP ---
Whole body PET CT scan: Comparisons are the previous no body PET CT scan dated 02/23/[address] scans dated 07/05/2016 and 12/10/2016. Whole body scan is performed from skull base to the upper thighs: Neck and supraclavicular areas: There is a new hypermetabolic uptake in the oropharynx anteriorly, likely related to dentition. There are no other hypermetabolic foci. The previous uptake in the left MASS there are muscle is no longer present. Chest: There are no hypermetabolic foci. On the comparison PET scan there was a 7 mm nodule in the superior segment of the lower lobe of the right lung. This is again identified on the CT scan today and is unchanged in size. This was also identified on the comparison chest CT studies of 07/05/2016 and 12/10/2016 where was also unchanged. This converts this lesion to a category 2 lesion with recommendation for annual low-dose lung screening CT follow-up of this lung nodule. Abdomen, pelvis and upper thighs: There are no hypermetabolic foci, as previously. There is nonspecific bowel uptake. Impression: There are no hypermetabolic foci. The patients known 7 mm right lung nodule is stable. Annual low-dose lung screening CT is recommended for follow up of this nodule. The study is performed with 10 mCi of F 18 FDG. Signed by Kostas Dick MD 03/21/2017 08:56 A
== END ==
LOC: M PLARAD 10:44
PROVIDERS: ATTEND Internal Medicine Medical Oncology
DX: R91.1 Solitary pulmonary nodule (principal)
CPT/HCPCS: 78815; A9552

== ENCOUNTER 2017-03-25 15:00 | Outpatient (RCR) | payer MEDICARE, BC | END 2017-04-11 | LOC: M CR 15:00 | PROVIDERS: ATTEND Internal Medicine | DX: Z51.89 Encounter for other specified aftercare (principal); J44.9 Chronic obstructive pulmonary disease, unspecified ==

== ENCOUNTER 2017-04-02 08:55 | Outpatient (CLI) | payer MEDICARE, BC ==
[~2017-04-02] VITALS: Ht 170.2 cm; Wt 63.5 kg
[2017-04-02] MEDS ORDERED: NS 1,000 ML IV ONE (09:00)
[2017-04-02] MEDS ORDERED: PROPOFOL 200 MG/20 ML VIAL As Ordered ONE (09:21)
[2017-04-02] MEDS ORDERED: LIDOCAINE 2% INJ 100 MG/5 ML SDV (FOR ANES.) As Ordered ONE (09:21)
--- NOTE | 2017-04-02 11:21 | ROOR ---
Patient Name: Ari White Procedure Date: 04/02/2017 10:36 AM Date of : 1955 Age: 61 Room: [facility] Gender: Male Note Status: Finalized Procedure: Colonoscopy Indications: Surveillance: Personal history of piecemeal removal of large sessile adenoma on last colonoscopy (less than 6 months ago), Surveillance: Personal history of incomplete removal of large sessile adenoma on last colonoscopy (less than 6 months ago) Providers: Reji ABRAHAM MD Referring MD: LOYDA LUNA JR, MD Requesting Provider: Medicines: Monitored Anesthesia Care Complications: No immediate complications. Procedure: Pre-Anesthesia Assessment: - The heart rate, respiratory rate, oxygen saturations, blood pressure, adequacy of pulmonary ventilation, and response to care were monitored throughout the procedure. The Colonoscope was introduced through the anus and advanced to the cecum, identified by appendiceal orifice and ileocecal valve. The colonoscopy was performed with difficulty due to inadequate bowel prep. Findings: The perianal and digital rectal examinations were normal. A tattoo was seen in the mid ascending colon. A post-polypectomy scar was found at the tattoo site. A 12 mm polyp was found in the mid ascending colon. The polyp was sessile. The polyp was removed with a piecemeal technique using a hot snare. Polyp resection was incomplete, and the resected tissue was partially retrieved. The exam was otherwise without abnormality. Impression: - Poor preparation required extensive lavage. Site of previous polypectomy identified by tattoo and clip. - A tattoo was seen in the mid ascending colon. A post-polypectomy scar was found at the tattoo site. Approximately 10-12 mm residual polyp was seen. - One 12 mm residual polyp in the mid ascending colon, removed piecemeal using a hot snare. Polyp resection was incomplete, and the resected tissue was partially retrieved. - The examination was otherwise normal. Recommendation: - Repeat colonoscopy in 6 months to review the polypectomy site. - If the pathology report is benign, then repeat colonoscopy for surveillance in 6 months. Reji Abraham MD Reji ABRAHAM MD 04/02/2017 11:20:58 AM This report has been signed electronically. Number of Addenda: 0 Note Initiated On: 04/02/2017 10:36 AM Estimated Blood Loss: Estimated blood loss: none.
[2017-04-02 11:40] VITALS: BP 119/68
== END 2017-04-02 11:46 | disposition home or self-care (01) ==
LOC: M OPP 08:55
PROVIDERS: ATTEND Internal Medicine Gastroenterology
DX: K63.5 Polyp of colon (principal); J44.9 Chronic obstructive pulmonary disease, unspecified; I25.10 Atherosclerotic heart disease of native coronary artery without angina pectoris; E78.5 Hyperlipidemia, unspecified; I10 Essential (primary) hypertension; E11.9 Type 2 diabetes mellitus without complications; R01.1 Cardiac murmur, unspecified; M19.90 Unspecified osteoarthritis, unspecified site; F41.9 Anxiety disorder, unspecified; J45.909 Unspecified asthma, uncomplicated; Z87.891 Personal history of nicotine dependence; Z79.899 Other long term (current) drug therapy; Z79.82 Long term (current) use of aspirin; Z79.52 Long term (current) use of systemic steroids; Z99.81 Dependence on supplemental oxygen

== ENCOUNTER → 2017-06-12 | Outpatient (CLI) | payer MEDICARE, BC ==
--- NOTE | 2017-06-13 13:59 | RADONC ---
RADIATION ONCOLOGY FOLLOWUP NOTE DATE: 06/12/2017 CHART NUMBER: [id number]. DIAGNOSIS: Left tonsil cancer. STAGE: MONAE, [id number]. ECOG PERFORMANCE STATUS: 3. FOLLOWUP NOTE: Mr. 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 The patient presents today reporting that he is doing quite well with regards to his head and neck cancer. He continues to have marked shortness of breath and is on nasal oxygen at all times. He has severe emphysema. The patient is having no difficulty swallowing or throat pain. REVIEW OF SYSTEMS: The patient's review of systems is positive for shortness of breath and need for nasal oxygen, which is causing a significant amount of physical limitations. It is otherwise noncontributory. Denies nausea, vomiting, fevers, chills, night sweats, diplopia, headaches, anxiety or depression, anorexia, weight loss, visual disturbances, chest pain, urinary or bowel difficulties, bone pain, or neurological problems. PHYSICAL EXAMINATION: The patient is a chronically ill-appearing male who is presenting with nasal oxygen. HEENT exam is normocephalic, atraumatic. Extraocular movements are intact. Examination of the patient's oral cavity reveals no evidence of nodularity ulceration recurrent or residual disease. There is no palpable preauricular, cervical, supraclavicular, infraclavicular lymphadenopathy present. The patient reports that he is being seen by Dr. Malave every 2-3 months. He is scheduled see Dr. Malave again in August. In addition, he is followed with Dr. Ray, his medical oncologist every 3 months and is scheduled see Dr. Ray next week. He is also following with multiple other physicians. In light of the close followup by his other physicians, I have discharged him from our followup except on a p.r.n. basis. He is clinically doing quite well, and indeed, a PET scan was done just 3 months ago, which showed no evidence of hypermetabolic activity. cc: MD Gustavo Bazzi Jr, MD Norman Weir, MD
== END ==
LOC: M ONCR 10:44
PROVIDERS: ATTEND Radiology Radiation Oncology
DX: C61 Malignant neoplasm of prostate (principal); C09.9 Malignant neoplasm of tonsil, unspecified

== ENCOUNTER 2017-06-27 13:39 | Outpatient (RCR) | payer SELFPAY | END 2017-07-11 | LOC: M CR 13:39 | PROVIDERS: ATTEND Internal Medicine | DX: Z51.89 Encounter for other specified aftercare (principal); J44.9 Chronic obstructive pulmonary disease, unspecified ==

== ENCOUNTER 2017-07-29 22:49 | Emergency (ER) | payer MEDICARE, BC ==
[~2017-07-29] VITALS: Ht 170.2 cm; Wt 65.0 kg
[2017-07-29] MEDS ORDERED: AUGM875T28 PO (23:19)
[2017-07-29] MEDS ORDERED: NS 1,000 ML IV SCH (23:23)
[2017-07-29] MEDS ORDERED: predniSONE 20 MG TAB PO ONE (23:30)
[2017-07-29] MEDS ORDERED: ASPIRIN 81 MG CHEW TABLET PO ONE (23:30)
[2017-07-30 00:06] LABS: BASO # 0.1 10^3/uL (0.0-0.2); BASO % 0.4 % (0.0-1.0); EOS # 0.2 10^3/uL (0.0-0.50); EOS % 1.3 % (0.0-3.0); IMMATURE GRANULOCYTE % 0.4 % (0-0); LYMPH # 0.8 10^3/uL (1.5-4.5); LYMPH % 5.9 % (24.0-44.0); MEAN CORPUSCULAR HEMOGLOBIN 29.5 pg (27.0-33.0); MEAN CORPUSCULAR HGB CONC 32.3 g/dl (32.0-36.5); MEAN CORPUSCULAR VOLUME 91.2 fl (80.0-96.0); MONO # 1.4 10^3/uL (0.0-0.8); PLATELET COUNT, AUTOMATED 338 10^3/uL (150-450); RED CELL DISTRIBUTION WIDTH 13.3 % (11.5-14.5); WHITE BLOOD COUNT 13.5 10^3/uL (4.0-10.0)
[2017-07-30 00:16] LABS: INR 0.88
[2017-07-30] MEDS: IPRATROPIUM 0.5MG/ALBUTEROL 2.5MG INH SOL UD 3ML (DUONEB)(J7620) NEB PRN ×2 (00:17→00:18)
[2017-07-30 00:22] LABS: VENOUS BASE EXCESS 4.9 (-2.0-2.0); VENOUS O2 SATURATION 40.8 % (60.0-80.0); VENOUS PARTIAL PRESSURE CO2 60.3 mmHg (38.0-50.0); VENOUS PARTIAL PRESSURE O2 25.1 mmHg (30.0-50.0); VENOUS STANDARD HCO3 27.5 MEQ/L; VENOUS TOTAL CO2 34.1 MEQ/L (24.0-28.0)
[2017-07-30 00:56] LABS: ANION GAP 6 MEQ/L (8-16); BLOOD UREA NITROGEN 12 MG/DL (7-18); CALCIUM LEVEL 9.7 MG/DL (8.8-10.2); CARBON DIOXIDE LEVEL 35 MEQ/L (21-32); CHLORIDE LEVEL 104 MEQ/L (98-107); CREATININE FOR GFR 0.86 MG/DL (0.70-1.30); GLOMERULAR FILTRATION RATE > 60.0 (>49); GLUCOSE, FASTING 167 MG/DL (80-110); POTASSIUM SERUM 3.7 MEQ/L (3.5-5.1); SODIUM LEVEL 145 MEQ/L (136-145)
--- NOTE | 2017-07-30 01:08 | REP ---
Clinical: Cough and dyspnea . Comparison: 07/08/2016 . Technique: PA and lateral. Findings: The mediastinum and cardiac silhouette are essentially within normal limits. The patient is status post sternotomy and cardiac valve replacement. The lung ríos demonstrate chronic appearing changes without acute consolidation, effusion, or pneumothorax. The skeletal structures are intact and normal. Impression: 1. No acute cardiopulmonary process. Signed by Ed Hodges MD 07/29/2017 10:01 P
[2017-07-30 01:27] VITALS: BP 123/69
[2017-07-30 01:52] VITALS: O2SAT 94
--- NOTE | 2017-07-30 08:46 | ECGEPIP ---
Stationary ECG Study [facility] - ED Test Date: 2017-07-29 Pat Name: DENICE ROSARIO Department: Room: - Gender: M Whirley Operator: JassoB: 1955 Requested By: DESTINY FRENCH Order Number: [id number] Reading MD: Tonia Puentes Measurements Intervals [place] Rate: 77 P: 85 IA: 156 QRS: 95 QRSD: 158 T: 64 QT: 415 QTc: 471 Interpretive Statements SINUS RHYTHM RIGHT BUNDLE BRANCH BLOCK SEPTAL MYOCARDIAL INFARCTION, OF INDETERMINATE AGE DECREASED RATE 07/04/16 Electronically Signed On 07-30-2017 8:46:21 EST by Tonia Puentes
== END 2017-07-30 02:30 | disposition home or self-care (01) ==
LOC: EDBD 22:49 → M ED 23:22
DX: J44.1 Chronic obstructive pulmonary disease with (acute) exacerbation (principal); E11.9 Type 2 diabetes mellitus without complications; I10 Essential (primary) hypertension; I25.10 Atherosclerotic heart disease of native coronary artery without angina pectoris; Z85.46 Personal history of malignant neoplasm of prostate; Z82.49 Family history of ischemic heart disease and other diseases of the circulatory system; Z79.899 Other long term (current) drug therapy; Z79.82 Long term (current) use of aspirin; Z79.84 Long term (current) use of oral hypoglycemic drugs; Z87.891 Personal history of nicotine dependence

== ENCOUNTER 2017-09-12 14:12 | Outpatient (RCR) | payer SELFPAY | END 2017-10-09 | LOC: M CR 14:12 | DX: J44.9 Chronic obstructive pulmonary disease, unspecified (principal) | CPT/HCPCS: 93797 ==

== ENCOUNTER 2017-11-04 14:55 | Outpatient (RCR) | payer SELFPAY | END 2017-11-09 | LOC: M CR 14:55 | DX: Z51.89 Encounter for other specified aftercare (principal); J44.9 Chronic obstructive pulmonary disease, unspecified ==

== ENCOUNTER 2017-11-14 07:26 | Day surgery (SDC) | payer MEDICARE ==
[2017-11-14] MEDS ORDERED: NS 1,000 ML IV (08:45)
[2017-11-14] MEDS ORDERED: PROPOFOL 200 MG/20 ML VIAL As Ordered (08:45)
[2017-11-14] MEDS ORDERED: PHENYLephrine HCL 500 MCG/5 ML (100MCG/ML) SYRINGE (J2370) As Ordered (08:45)
== END 2017-11-14 09:32 | disposition home or self-care (01) ==
LOC: M OPP 07:26
DX: Z09 Encounter for follow-up examination after completed treatment for conditions other than malignant neoplasm (principal); Z86.010 Personal history of colon polyps; D49.0 Neoplasm of unspecified behavior of digestive system; K57.30 Diverticulosis of large intestine without perforation or abscess without bleeding; K64.8 Other hemorrhoids; R00.8 Other abnormalities of heart beat; Z95.2 Presence of prosthetic heart valve; Z95.1 Presence of aortocoronary bypass graft; I25.10 Atherosclerotic heart disease of native coronary artery without angina pectoris; I10 Essential (primary) hypertension; E78.5 Hyperlipidemia, unspecified; E11.9 Type 2 diabetes mellitus without complications; Z85.89 Personal history of malignant neoplasm of other organs and systems; D64.9 Anemia, unspecified; R06.02 Shortness of breath; M19.90 Unspecified osteoarthritis, unspecified site; F41.9 Anxiety disorder, unspecified; J45.909 Unspecified asthma, uncomplicated; J44.9 Chronic obstructive pulmonary disease, unspecified; Z92.3 Personal history of irradiation; Z85.46 Personal history of malignant neoplasm of prostate; Z87.891 Personal history of nicotine dependence; Z79.82 Long term (current) use of aspirin; Z79.52 Long term (current) use of systemic steroids; Z79.899 Other long term (current) drug therapy; Z79.84 Long term (current) use of oral hypoglycemic drugs
CPT/HCPCS: 45378

== ENCOUNTER → 2017-12-12 | Outpatient (CLI) | payer MEDICARE | LOC: M WUC 11:22 | DX: R06.02 Shortness of breath (principal) | CPT/HCPCS: 71046 ==

== ENCOUNTER 2017-12-23 13:16 | Outpatient (RCR) | payer MEDICARE | END 2018-01-09 | LOC: M CR 13:16 | DX: Z51.89 Encounter for other specified aftercare (principal); J44.9 Chronic obstructive pulmonary disease, unspecified | CPT/HCPCS: 93797 ==

== ENCOUNTER 2018-02-20 13:58 | Outpatient (RCR) | payer SELFPAY, MEDICARE | END 2018-03-11 | LOC: M CR 13:58 | DX: J44.9 Chronic obstructive pulmonary disease, unspecified (principal) | CPT/HCPCS: 93797 ==

== ENCOUNTER → 2018-03-21 | Outpatient (CLI) | payer MEDICARE, SELFPAY | LOC: M WUC 16:46 | DX: R06.02 Shortness of breath (principal); J44.9 Chronic obstructive pulmonary disease, unspecified; R91.8 Other nonspecific abnormal finding of lung field | CPT/HCPCS: 71046 ==

== ENCOUNTER 2018-04-17 13:57 | Outpatient (RCR) | payer SELFPAY | END 2018-05-11 | LOC: M CR 13:57 | DX: J44.9 Chronic obstructive pulmonary disease, unspecified (principal) | CPT/HCPCS: 93797 ==

== ENCOUNTER → 2018-05-26 | Outpatient (CLI) | payer MEDICARE, MEDICAID | LOC: M RAD 09:53 | DX: R91.8 Other nonspecific abnormal finding of lung field (principal) | CPT/HCPCS: 71250 ==

== ENCOUNTER 2018-05-27 13:15 | Outpatient (RCR) | payer MEDICARE, OTHER, MEDICAID | END 2018-06-11 | LOC: M PT 13:15 | DX: M54.2 Cervicalgia (principal) | CPT/HCPCS: 97110 ==

== ENCOUNTER → 2018-05-30 | Outpatient (REF) | payer MEDICARE, OTHER | LOC: M LAB REF 16:29 | DX: D64.9 Anemia, unspecified (principal) | CPT/HCPCS: 82607 ==

== ENCOUNTER → 2018-06-13 | Outpatient (CLI) | payer MEDICARE, OTHER, MEDICAID ==
[2018-06-13 14:12] LABS: CREATININE FOR GFR 0.78 MG/DL (0.70-1.30); GLOMERULAR FILTRATION RATE > 60.0 (>49)
[2018-06-13 14:12] LABS: BLOOD UREA NITROGEN 11 MG/DL (7-18)
== END ==
LOC: M LAB 13:05
DX: C09.0 Malignant neoplasm of tonsillar fossa (principal)
CPT/HCPCS: 82565

== ENCOUNTER 2018-06-16 14:04 | Outpatient (RCR) | payer MEDICARE, OTHER | END 2018-07-11 | LOC: M PT 14:04 | DX: M54.2 Cervicalgia (principal); Z92.3 Personal history of irradiation; C09.0 Malignant neoplasm of tonsillar fossa | CPT/HCPCS: 97110 ==

== ENCOUNTER → 2018-06-17 | Outpatient (CLI) | payer MEDICARE, OTHER ==
[~2018-06-17] MED LIST changes: -/MOXI40TA PO; -ADVA230INH INH; -ALB2.5NEB NEB; -ALBU17IN INH; -ALBU83IN INH; -ALPR0.25 PO; -ASPI81TA85 PO; -ATOR1TAB21 PO; -AUGM500T34 PO; -AZIT-12 PO; -BUDE0.5S IN; -BUDEPOW INH; -CEFT500T3 PO; -CEFU500T2 PO; -CIAL5TAB PO; -CLOT10TR MT; -DIGO0.12 PO; -FLUC10TA PO; -GLUC500T PO; +ISOVUE-370 76% 100ML VIAL (Q9967) As Ordered; -LEVA750T7 PO; -LEVO500T PO; -LEVO750T PO; -LIPI20TA PO; -LOTR52CA PO; -METF500T13 PO; -METO1TAB87 PO; -METO25TAB PO; -MUCI600T34 PO; -MUCI600T37 PO; -NITR4TASL SL; -NYST50SS SS; -ONETAB4 PO; -PRED10PA PO; -PRED10PA2 PO; -PRED10TA PO; -PRED10TA2 PO; -PRED1TAB32 PO; -PULM0.5S INH; -PULM1SUS INH; -SIMV20TA2 PO; -SPIR1CAP IN; -SYMB16INH INH; -TIOTROPIUM INH; -WELLTAB38 PO; -XANA0.25 PO; -XOPEAER IN; -[UNRECOGNIZED DRUG - OTHER] INH; -albuterol nebulizer INH
== END ==
LOC: M RAD 14:19
DX: C09.0 Malignant neoplasm of tonsillar fossa (principal); Z92.3 Personal history of irradiation
CPT/HCPCS: Q9967

== ENCOUNTER 2018-07-14 11:09 | Outpatient (RCR) | payer MEDICARE, MEDICAID ==
[~2018-07-14 11:09] MED LIST changes: +/MOXI40TA PO; +ADVA230INH INH; +ALB2.5NEB NEB; +ALBU17IN INH; +ALBU83IN INH; +ALPR0.25 PO; +ASPI81TA85 PO; +ATOR1TAB21 PO; +AUGM500T34 PO; +AUGM875T28 PO; +AZIT-12 PO; +BUDE0.5S IN; +BUDEPOW INH; +CEFT500T3 PO; +CEFU500T2 PO; +CIAL5TAB PO; +CLOT10TR MT; +DIGO0.12 PO; +FLUC10TA PO; +GLUC500T PO; -ISOVUE-370 76% 100ML VIAL (Q9967) As Ordered; +LEVA750T7 PO; +LEVO500T PO; +LEVO750T PO; +LIPI20TA PO; +LOTR52CA PO; +METF500T13 PO; +METO1TAB87 PO; +METO25TAB PO; +MUCI600T34 PO; +MUCI600T37 PO; +NITR4TASL SL; +NYST50SS SS; +ONETAB4 PO; +PRED10PA PO; +PRED10PA2 PO; +PRED10TA PO; +PRED10TA2 PO; +PRED1TAB32 PO; +PULM0.5S INH; +PULM1SUS INH; +SIMV20TA2 PO; +SPIR1CAP IN; +SYMB16INH INH; +TIOTROPIUM INH; +WELLTAB38 PO; +XANA0.25 PO; +XOPEAER IN; +[UNRECOGNIZED DRUG - OTHER] INH; +albuterol nebulizer INH
== END 2018-08-11 ==
LOC: M CR 11:09 → M PR 11:09
PROVIDERS: ATTEND Internal Medicine
DX: J44.9 Chronic obstructive pulmonary disease, unspecified (principal)

== ENCOUNTER 2018-09-23 23:38 | Emergency (ER) | payer MEDICARE, MEDICAID ==
[~2018-09-23] VITALS: Ht 170.2 cm; Wt 63.6 kg
[2018-09-24] LABS: BASO # 0.1 10^3/uL (0.0-0.2); BASO % 0.4 % (0.0-1.0); EOS # 0.2 10^3/uL (0.0-0.50); EOS % 1.6 % (0.0-3.0); HEMATOCRIT 35.2 % (42.0-52.0); HEMOGLOBIN 11.3 g/dl (13.5-17.5); LYMPH # 0.8 10^3/uL (1.5-4.5); LYMPH % 5.5 % (24.0-44.0); MEAN CORPUSCULAR HEMOGLOBIN 31.2 pg (27.0-33.0); MEAN CORPUSCULAR HGB CONC 32.1 g/dl (32.0-36.5); MEAN CORPUSCULAR VOLUME 97.2 fl (80.0-96.0); MONO # 1.1 10^3/uL (0.0-0.8); MONO % 7.9 % (0.0-5.0); NEUTROPHILS # 11.5 10^3/uL (1.8-7.7); NEUTROPHILS % 84.2 % (36.0-66.0); PLATELET COUNT, AUTOMATED 320 10^3/uL (150-450); RED BLOOD COUNT 3.62 10^6/uL (4.30-6.10); WHITE BLOOD COUNT 13.7 10^3/uL (4.0-10.0)
[2018-09-24 00:23] LABS: INR 0.89; PROTHROMBIN TIME 12.1 SECONDS (12.1-14.4)
[2018-09-24 00:24] LABS: PARTIAL THROMBOPLASTIN TIME 26.4 SECONDS (25.4-37.6)
[2018-09-24 00:39] LABS: BLOOD UREA NITROGEN 15 MG/DL (7-18); CALCIUM LEVEL 9.4 MG/DL (8.8-10.2); CARBON DIOXIDE LEVEL 34 MEQ/L (21-32); CHLORIDE LEVEL 100 MEQ/L (98-107); CPK CREATINE PHOSPHOKINASE 118 U/L (39-308); CREATININE FOR GFR 1.06 MG/DL (0.70-1.30); FREE T4 0.78 NG/DL (0.76-1.46); GLOMERULAR FILTRATION RATE > 60.0 (>49); GLUCOSE, FASTING 161 MG/DL (70-100); MAGNESIUM LEVEL 1.7 MG/DL (1.8-2.4); MB/CK RELATIVE INDEX 1.86 (< OR =4); POTASSIUM SERUM 4.2 MEQ/L (3.5-5.1); SODIUM LEVEL 141 MEQ/L (136-145); TROPONIN I < 0.02 NG/ML (< 0.10)
[2018-09-24] MEDS ORDERED: NS 1,000 ML IV ONE (00:45)
[2018-09-24] MEDS ORDERED: MAGNESIUM OXIDE 400 MG TAB (MAG-OX) PO ONE (01:00)
[2018-09-24 02:04] VITALS: BP 111/56
--- NOTE | 2018-09-24 07:47 | REP ---
PA and lateral chest: Comparison is a 05/31/2018. There are the lung ríos are chronically hyper aerated, unchanged. There are no infiltrates or effusions. There are no masses or nodules. Cardiac size is normal. There are sternotomy wires and cardiac valve replacement, unchanged. Impression: No acute cardiopulmonary findings. There are chronic findings as described. Electronically Signed by Kostas Dick MD 09/24/2018 07:38 A
--- NOTE | 2018-09-24 17:06 | ECGEPIP ---
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
== END 2018-09-24 02:39 | disposition home or self-care (01) ==
LOC: M ED 23:38
DX: R55 Syncope and collapse (principal); R19.7 Diarrhea, unspecified; I10 Essential (primary) hypertension; E78.5 Hyperlipidemia, unspecified; J44.9 Chronic obstructive pulmonary disease, unspecified; I25.10 Atherosclerotic heart disease of native coronary artery without angina pectoris

== ENCOUNTER 2018-09-26 11:44 | Outpatient (RCR) | payer MEDICARE, MEDICAID ==
[2018-10-10] MEDS ORDERED: VENTAER INH (10:37)
[2018-10-10] MEDS ORDERED: NEUR300C PO (10:45)
[2018-10-10] MEDS ORDERED: AMOX500T PO (10:45)
== END 2018-10-09 ==
LOC: M PR 11:44
PROVIDERS: ATTEND Internal Medicine
DX: J44.9 Chronic obstructive pulmonary disease, unspecified (principal)

== ENCOUNTER → 2018-10-07 | Outpatient (CLI) | payer MEDICARE, MEDICAID ==
[~2018-10-07] MED LIST changes: +AMOX500T PO; +E-Z-GAS II EFFERVESCENT PACKET (SODIUM BICARB./CITRIC ACID/SIMETHICONE) As Ordered ONE; +E-Z-HD 98% w/w 340GM SUSP BTL As Ordered ONE; +E-Z-PAQUE 96% w/w SUSP 176GM BTL As Ordered ONE; +NEUR300C PO; +VENTAER INH
--- NOTE | 2018-10-07 19:33 | REP ---
Esophagram The procedure was performed under the direct supervision of Dr. Hsu. The images were reviewed with Dr. Hsu. A single view PA chest x-ray is submitted as a supervisor salvage film. There is no change compared to a previous chest x-ray performed on 09/23/2018. Liquid barium and gas producing granules were given in the erect position as well as liquid barium in the prone oblique positions in order to perform a double contrast esophagram examination. The oral and pharyngeal stages of deglutition are unremarkable. There are esophageal transport there are tertiary waves demonstrated. There is no esophagitis stricture mucosal ring or hiatal hernia. Gastroesophageal reflux is not demonstrated on this examination. Impression: There are tertiary waves demonstrated. Otherwise, unremarkable double contrast esophagram examination. 0.7 minutes of fluoro time was utilized for this procedure. Reviewed by ALESSANDRA Ocasio 10/07/2018 04:34 P Electronically Signed by Bib Hsu MD 10/07/2018 07:24 P
== END ==
LOC: M RAD 08:44
PROVIDERS: ATTEND Physician Assistant Medical
DX: R13.10 Dysphagia, unspecified (principal)

== ENCOUNTER → 2018-10-09 | Outpatient (REF) | payer MEDICARE, MEDICAID ==
[~2018-10-09] MED LIST changes: -E-Z-GAS II EFFERVESCENT PACKET (SODIUM BICARB./CITRIC ACID/SIMETHICONE) As Ordered ONE; -E-Z-HD 98% w/w 340GM SUSP BTL As Ordered ONE; -E-Z-PAQUE 96% w/w SUSP 176GM BTL As Ordered ONE
[2018-10-09 18:24] LABS: HEMATOCRIT 36.4 % (42.0-52.0)
[2018-10-09 18:43] LABS: PERCENT SATURATION 15.5 % (19.7-50.0)
== END ==
LOC: M LAB REF 16:46
PROVIDERS: ATTEND Nurse Practitioner Adult Health
DX: D64.9 Anemia, unspecified (principal)

== ENCOUNTER 2018-10-24 12:31 | Day surgery (SDC) | payer MEDICARE, MEDICAID ==
[~2018-10-24] VITALS: Ht 170.2 cm; Wt 65.2 kg
[2018-10-24] MEDS ORDERED: NS 1,000 ML IV ONE (13:00)
[2018-10-24] MEDS ORDERED: PROPOFOL 200 MG/20 ML VIAL As Ordered ONE (14:04)
[2018-10-24] MEDS ORDERED: LIDOCAINE 2% INJ 100 MG/5 ML SDV (FOR ANES.) As Ordered ONE (14:04)
--- NOTE | 2018-10-24 14:24 | ROOR ---
Patient Name: Ari White Procedure Date: 10/24/2018 2:03 PM Date of : 1955 Age: 62 Room: [facility], [facility] Gender: Male Note Status: Finalized Procedure: Upper GI endoscopy Indications: Dysphagia Providers: Reji MARIE MD Referring MD: LOYDA LUNA JR, MD Requesting Provider: Medicines: Monitored Anesthesia Care Complications: No immediate complications. Procedure: Pre-Anesthesia Assessment: - The heart rate, respiratory rate, oxygen saturations, blood pressure, adequacy of pulmonary ventilation, and response to care were monitored throughout the procedure. The Endoscope was introduced through the mouth, and advanced to the second part of duodenum. The upper GI endoscopy was accomplished without difficulty. The patient tolerated the procedure well. Findings: The esophagus was normal. The stomach was normal. The examined duodenum was normal. No endoscopic abnormality was evident in the esophagus to explain the patient's complaint of dysphagia. It was decided, however, to proceed with dilation of the entire esophagus. The scope was withdrawn. Dilation was performed with a Roach dilator with no resistance at 54 Fr. Impression: - Normal esophagus. - Normal stomach. - Normal examined duodenum. - No endoscopic esophageal abnormality to explain patient's dysphagia. Esophagus dilated with 54 F roach dilator. - No specimens collected. Recommendation: - Continue present medications. - Use Prilosec (omeprazole) 40 mg PO BID. - (the script was sent to your pharmacy on file) Reji Marie MD Reji MARIE MD 10/24/2018 2:24:17 PM This report has been signed electronically. Number of Addenda: 0 Note Initiated On: 10/24/2018 2:03 PM Estimated Blood Loss: Estimated blood loss: none.
[2018-10-24 14:55] VITALS: BP 118/66
[2018-11-03] MEDS ORDERED: FERR1TAB8 PO (14:38)
[2018-11-03] MEDS ORDERED: METO50TA7 PO (14:38)
[2018-11-03] MEDS ORDERED: PRED10PA PO (14:38)
== END 2018-10-26 15:03 | disposition home or self-care (01) ==
LOC: M OPP 12:31
PROVIDERS: ATTEND Internal Medicine Gastroenterology
DX: R13.10 Dysphagia, unspecified (principal); Z79.82 Long term (current) use of aspirin; Z79.84 Long term (current) use of oral hypoglycemic drugs; Z79.899 Other long term (current) drug therapy; Z91.040 Latex allergy status; Z91.048 Other nonmedicinal substance allergy status; Z88.3 Allergy status to other anti-infective agents; Z95.2 Presence of prosthetic heart valve; Z87.891 Personal history of nicotine dependence

== ENCOUNTER → 2018-11-11 | Outpatient (CLI) | payer MEDICARE, MEDICAID ==
[~2018-11-11] MED LIST changes: -/MOXI40TA PO; +AVEL1TAB2 PO; +FERR1TAB8 PO; +ISOVUE-370 76% 125ML VIAL (Q9967 PER ML) As Ordered ONE; +METO1TAB63 PO; -METO25TAB PO; +METO50TA7 PO; +PRED-351 PO; -PRED10TA PO
--- NOTE | 2018-11-11 09:10 | REP ---
CT NECK WITH CONTRAST: HISTORY: Head and neck cancer. CONTRAST: Isovue 370, 100 mL. COMPARISON: 06/17/2018. There is thickening of the inferior left tonsil and left lateral wall of the oropharynx. This is increased compared to the previous study. There is no extension into the tongue base. There is slight extension into the left posterolateral wall of the oropharynx. There is minimal mass effect on the oropharynx. There is thickening of the epiglottis. Increased density is present in the retropharyngeal space. The nasopharynx, larynx and subglottic trachea are normal in appearance. The salivary and thyroid glands are normal in size and density. Small lymph nodes less than 1 cm in size are present in the internal jugular chains, posterior triangles, and submandibular areas. Atherosclerotic calcification is present at the carotid bifurcations. Degenerative change is present in the cervical spine. The lung apices are clear. The visualized sinuses are clear. IMPRESSION: 1. There is thickening of the left tonsil and thickening of the left lateral and left posterolateral wall of the oropharynx that is increased compared to the previous study. This is consistent with recurrent or residual tumor. 2. Findings consistent with postradiation change. Electronically Signed by Wm Grimes MD 11/11/2018 09:14 A
--- NOTE | 2018-11-11 09:32 | REP ---
CT study of the chest with IV contrast: History: Head and neck malignancy. Followup. Comparison CT chest exam is from April 10, 2018. December 10, 2016 prior study is also reviewed. CT findings: There is a stable noncalcified nodule in the right lower lobe, superiorly and laterally. This measures 7.8 mm in greatest diameter today. It is felt to be unchanged from december 2016 prior study. No new pulmonary nodule is appreciated. Advanced emphysematous / COPD changes are again noted throughout the lung ríos. There are mild linear fibrotic changes in the bases bilaterally. There is no evidence of pleural or pericardial effusion. Vascular calcifications noted. No hilar or mediastinal mass or adenopathy is observed. No extrathoracic mass or adenopathy is seen. Bone window settings show no bony destructive lesion. Impression: Advanced COPD changes. Stable 7.8 mm nodule right lower lobe superiorly. No acute abnormality. Electronically Signed by Bib Hsu MD 11/11/2018 09:32 A
== END ==
LOC: M RAD 07:50
PROVIDERS: ATTEND Internal Medicine Hematology & Oncology
DX: C76.0 Malignant neoplasm of head, face and neck (principal)
CPT/HCPCS: 70491; 71260; Q9967

== ENCOUNTER → 2018-12-05 | Outpatient (REF) | payer MEDICARE, OTHER ==
[~2018-12-05] MED LIST changes: -ISOVUE-370 76% 125ML VIAL (Q9967 PER ML) As Ordered ONE; +MUCI600T31 PO; +ONETAB9 PO; +SLOW160T12 PO; +TORS10TA3 PO; +VITA-158 PO
--- NOTE | 2018-12-05 10:11 | REP ---
PET/CT: History: Head and neck cancer. Reading of outside study requested by Dr. Garrett. Examination performed at [facility] dated December 03, 2018. Comparisons: Comparison is made with PET-CT study is from September 15, 2015 and March 20, 2017. TECHNIQUE: Approximately 45 minutes following the intravenous injection of a 11.19 mCi dose of F-18 FDG, three-dimensional PET scintigraphy is acquired from the skull base to the proximal thighs. Triplanar noncontrast CT scanning is acquired through the same anatomic range for attenuation correction, and image registration with scan parameters optimized to minimize radiation exposure to the patient. PET scintigraphy and CT datasets were fused and displayed on a workstation with multiplanar and projection display capability. PET/CT Findings: There is some skeletal muscle normal variant FDP accumulation in the head and neck soft tissues. There is no evidence of tonsillar, peritonsillar, or abnormal lymph node activity on today's PET scintigraphy. No abnormal uptake is seen in the head and neck soft tissues. No abnormal hilar or mediastinal hypermetabolic uptake is seen. The patient status post aortic valve replacement via median sternotomy. There is a stable non hypermetabolic 7 mm right lower lobe pulmonary nodule. COPD changes are seen. No abnormal hypermetabolic pulmonary parenchymal uptake is observed. In the abdomen and pelvis, there is normal hepatic, splenic, gastrointestinal and genitourinary MDT accumulation. No abnormal hypermetabolic uptake is seen. Impression: Negative PET scintigraphy. No abnormal hypermetabolic uptake in the head and neck soft tissues or elsewhere. Stable 7 mm right lower lobe nodule. Electronically Signed by Bib Hsu MD 12/05/2018 10:10 A
== END ==
LOC: M RAD 09:07
PROVIDERS: ATTEND Internal Medicine Hematology & Oncology
DX: R91.1 Solitary pulmonary nodule (principal); Z85.89 Personal history of malignant neoplasm of other organs and systems

== ENCOUNTER 2018-12-11 12:06 | Outpatient (RCR) | payer MEDICARE, OTHER | END 2019-01-09 | LOC: M PR 12:06 | PROVIDERS: ATTEND Internal Medicine | DX: J44.9 Chronic obstructive pulmonary disease, unspecified (principal) ==

== ENCOUNTER → 2018-12-11 | Outpatient (REF) | payer MEDICARE, MEDICAID ==
[2018-12-11 13:10] LABS: INR 0.83; PARTIAL THROMBOPLASTIN TIME 29.8 SECONDS (25.4-37.6); PROTHROMBIN TIME 11.5 SECONDS (12.1-14.4)
== END ==
LOC: M LAB REF 12:49
PROVIDERS: ATTEND Internal Medicine
DX: Z01.818 Encounter for other preprocedural examination (principal); D69.8 Other specified hemorrhagic conditions; I70.213 Atherosclerosis of native arteries of extremities with intermittent claudication, bilateral legs

== ENCOUNTER 2018-12-17 05:49 | Day surgery (SDC) | payer MEDICARE, MEDICAID ==
[~2018-12-17] VITALS: Ht 170.2 cm; Wt 64.6 kg
[2018-12-17] MEDS ORDERED: CEFUROXIME 1MG/0.1ML INTRACAMERAL INJ As Ordered ONE (06:46)
[2018-12-17] MEDS ORDERED: LIDOCAINE 1% SDV 5 ML VIAL As Ordered ONE (06:46)
[2018-12-17] MEDS ORDERED: POVIDONE-IODINE 5% OPHTH PREP SOL 30ML As Ordered ONE (06:46)
[2018-12-17] MEDS ORDERED: HEALON DUET PRO(HEALON 10MG/ML 0.55ML & HEALON ENDOCOAT 30MG/ML 0.85ML) As Ordered ONE (06:46)
[2018-12-17] MEDS ORDERED: BALANCED SALT IRRIGATION SOLUTION 500ML BAG (FOR OR EYE MACHINE) As Ordered ONE (06:46)
[2018-12-17] MEDS ORDERED: fentaNYL 100 MCG/2 ML INJECTION (J3010) As Ordered ONE (06:56)
[2018-12-17] MEDS ORDERED: MIDAZOLAM INJ 2 MG/2 ML VIAL (J2250) As Ordered ONE (06:57)
[2018-12-17] MEDS ORDERED: PHENYLEPHRINE 2.5% OPHTH SOL 2ML OD ONE (07:00)
[2018-12-17] MEDS ORDERED: OFLOXACIN 0.3 % (OCUFLOX) OPTH SOL 5ML OD ONE (07:00)
[2018-12-17] MEDS ORDERED: PHENYLEPHRINE HCL 10 % OPHTH. SOL 5ML OD PRN (07:00)
[2018-12-17] MEDS ORDERED: LIDOCAINE 3.5 % 1ML OPHTH TOPICAL GEL OU ONE (07:00)
[2018-12-17] MEDS ORDERED: CYCLOPENTOLATE 2% OPHTH SOLN 2ML BTL OD ONE (07:00)
[2018-12-17] MEDS ORDERED: TROPICAMIDE 1% OPHTH SOLN 2ML OD ONE (07:00)
[2018-12-17 09:02] VITALS: BP 100/58
--- NOTE | 2018-12-17 13:07 | RO ---
DATE OF PROCEDURE: 12/17/2018 PREPROCEDURE DIAGNOSIS: Age-related nuclear cataract right eye. POSTPROCEDURE DIAGNOSIS: Age-related nuclear cataract right eye. PROCEDURE: Phacoemulsification and posterior chamber intraocular lens implantation. The lens used was AU00T0, 17.5 diopter. SURGEON: Triny Humphreys MD CASINO CASHIER: ANESTHESIA: Topical with sedation. DESCRIPTION OF PROCEDURE: The patient was prepped and draped in the usual fashion. A lid speculum was placed between the lids. The eye was fixated. A stab incision was made to the anterior chamber, and 1% nonpreserved lidocaine was instilled. Then, viscoelastic was instilled. The eye was re-fixated. A 2.75 mm sapphire keratome was used to make a clear corneal temporal limbal incision. Capsulorrhexis was begun with a 30-gauge bent needle and then carried out in a circular fashion with capsulorrhexis forceps. The lens was hydrodissected, and then the phacoemulsification unit was used to make a groove in the nucleus in two meridians. The nucleus was then cracked into four quadrants. Each quadrant was removed with the phacoemulsification unit. Any remaining cortex was removed with the irrigation and aspiration (I and A) unit. Capsular bag was refilled with viscoelastic. A posterior chamber intraocular lens was placed in the capsular bag without difficulty. Any remaining viscoelastic was removed with the I and A unit. The wound was hydrated, and Miochol and cefuroxime were instilled into the anterior chamber. The patient tolerated the procedure well and went to the recovery room in stable condition.
== END 2018-12-17 09:23 | disposition home or self-care (01) ==
LOC: M SDC 05:49
PROVIDERS: ATTEND Ophthalmology
DX: H25.11 Age-related nuclear cataract, right eye (principal); J44.9 Chronic obstructive pulmonary disease, unspecified; I25.10 Atherosclerotic heart disease of native coronary artery without angina pectoris; E78.5 Hyperlipidemia, unspecified; I10 Essential (primary) hypertension; I73.9 Peripheral vascular disease, unspecified; E11.9 Type 2 diabetes mellitus without complications; D64.9 Anemia, unspecified; Z85.818 Personal history of malignant neoplasm of other sites of lip, oral cavity, and pharynx; Z79.82 Long term (current) use of aspirin; Z79.84 Long term (current) use of oral hypoglycemic drugs; Z79.52 Long term (current) use of systemic steroids; Z95.2 Presence of prosthetic heart valve; Z87.891 Personal history of nicotine dependence
CPT/HCPCS: 66984; 92015; J2250; J3010; V2632

== ENCOUNTER 2018-12-24 07:00 | Day surgery (SDC) | payer MEDICARE, MEDICAID ==
[~2018-12-24] VITALS: Ht 170.2 cm; Wt 64.9 kg
[~2018-12-24 07:00] MED LIST changes: +ACETAMINOPHEN 325 MG TAB PO PRN; +BALANCED SALT IRRIGATION SOLUTION 500ML BAG (FOR OR EYE MACHINE) As Ordered ONE; +CEFUROXIME 1MG/0.1ML INTRACAMERAL INJ As Ordered ONE; +CYCLOPENTOLATE 2% OPHTH SOLN 2ML BTL OS ONE; +HEALON DUET PRO(HEALON 10MG/ML 0.55ML & HEALON ENDOCOAT 30MG/ML 0.85ML) As Ordered ONE; +LIDOCAINE 1% SDV 5 ML VIAL As Ordered ONE; +LIDOCAINE 3.5 % 1ML OPHTH TOPICAL GEL OU ONE; +OFLOXACIN 0.3 % (OCUFLOX) OPTH SOL 5ML OS ONE; +PHENYLEPHRINE 2.5% OPHTH SOL 2ML OS ONE; +PHENYLEPHRINE HCL 10 % OPHTH. SOL 5ML OS PRN; +POVIDONE-IODINE 5% OPHTH PREP SOL 30ML As Ordered ONE; +TROPICAMIDE 1% OPHTH SOLN 2ML OS ONE
[2018-12-24] MEDS ORDERED: PROPARACAINE 0.5% OPHTH SOL 15ML OS PRN (07:01)
[2018-12-24] MEDS ORDERED: MIDAZOLAM INJ 2 MG/2 ML VIAL (J2250) As Ordered ONE (07:16)
[2018-12-24] MEDS ORDERED: fentaNYL 100 MCG/2 ML INJECTION (J3010) As Ordered ONE (07:16)
[2018-12-24] MEDS ORDERED: LR 1,000 ML IV SCH (09:00)
[2018-12-24] MEDS ORDERED: TRIMETHOBENZAMIDE 300 MG CAP PO PRN (09:00)
[2018-12-24] MEDS ORDERED: AcetaZOLAMIDE 500 MG ER CAP PO ONE (09:00)
[2018-12-24] MEDS ORDERED: KETOROLAC 0.5% OPHTH SOLN OS ONE (09:00)
[2018-12-24] MEDS ORDERED: ACETAMINOPHEN TAB 650MG DOSE (2X325MG) PO PRN (09:00)
[2018-12-24 09:10] VITALS: BP 117/62
--- NOTE | 2018-12-24 12:19 | RO ---
DATE OF PROCEDURE: 12/24/2018 PREPROCEDURE DIAGNOSIS: Age-related nuclear posterior subcapsular cataract left eye. POSTPROCEDURE DIAGNOSIS: Age-related nuclear posterior subcapsular cataract left eye. PROCEDURE: Phacoemulsification and posterior chamber intraocular lens implantation. The lens used was AU00T0, 18.0 diopter. SURGEON: Triny Humphreys MD CURTAIN FITTER: ANESTHESIA: Topical with sedation. DESCRIPTION OF PROCEDURE: The patient was prepped and draped in the usual fashion. A lid speculum was placed between the lids. The eye was fixated. A stab incision was made to the anterior chamber, and 1% nonpreserved lidocaine was instilled. Then, viscoelastic was instilled. The eye was re-fixated. A 2.75 mm sapphire keratome was used to make a clear corneal temporal limbal incision. Capsulorrhexis was begun with a 30-gauge bent needle and then carried out in a circular fashion with capsulorrhexis forceps. The lens was hydrodissected, and then the phacoemulsification unit was used to make a groove in the nucleus in two meridians. The nucleus was then cracked into four quadrants. Each quadrant was removed with the phacoemulsification unit. Any remaining cortex was removed with the irrigation and aspiration (I and A) unit. Capsular bag was refilled with viscoelastic. A posterior chamber intraocular lens was placed in the capsular bag without difficulty. Any remaining viscoelastic was removed with the I and A unit. The wound was hydrated, and Miochol and cefuroxime were instilled into the anterior chamber. The patient tolerated the procedure well and went to the recovery room in stable condition.
== END 2018-12-24 09:20 | disposition home or self-care (01) ==
LOC: M SDC 07:00
PROVIDERS: ATTEND Ophthalmology
DX: H25.12 Age-related nuclear cataract, left eye (principal); I35.9 Nonrheumatic aortic valve disorder, unspecified; Z95.1 Presence of aortocoronary bypass graft; I25.10 Atherosclerotic heart disease of native coronary artery without angina pectoris; E11.9 Type 2 diabetes mellitus without complications; D64.9 Anemia, unspecified; I10 Essential (primary) hypertension; E78.5 Hyperlipidemia, unspecified; Z79.51 Long term (current) use of inhaled steroids; Z87.891 Personal history of nicotine dependence; J44.9 Chronic obstructive pulmonary disease, unspecified; Z79.84 Long term (current) use of oral hypoglycemic drugs; Z85.46 Personal history of malignant neoplasm of prostate; Z92.21 Personal history of antineoplastic chemotherapy; Z79.82 Long term (current) use of aspirin; Z79.52 Long term (current) use of systemic steroids
CPT/HCPCS: 66984; 92015; J2250; J3010; V2632

== ENCOUNTER → 2019-01-06 | Outpatient (REF) | payer MEDICARE, MEDICAID ==
[~2019-01-06] MED LIST changes: -ACETAMINOPHEN 325 MG TAB PO PRN; -BALANCED SALT IRRIGATION SOLUTION 500ML BAG (FOR OR EYE MACHINE) As Ordered ONE; -CEFUROXIME 1MG/0.1ML INTRACAMERAL INJ As Ordered ONE; -CYCLOPENTOLATE 2% OPHTH SOLN 2ML BTL OS ONE; -HEALON DUET PRO(HEALON 10MG/ML 0.55ML & HEALON ENDOCOAT 30MG/ML 0.85ML) As Ordered ONE; -LIDOCAINE 1% SDV 5 ML VIAL As Ordered ONE; -LIDOCAINE 3.5 % 1ML OPHTH TOPICAL GEL OU ONE; -OFLOXACIN 0.3 % (OCUFLOX) OPTH SOL 5ML OS ONE; -PHENYLEPHRINE 2.5% OPHTH SOL 2ML OS ONE; -PHENYLEPHRINE HCL 10 % OPHTH. SOL 5ML OS PRN; -POVIDONE-IODINE 5% OPHTH PREP SOL 30ML As Ordered ONE; -TROPICAMIDE 1% OPHTH SOLN 2ML OS ONE
[2019-01-06 13:27] LABS: INR 0.81; PROTHROMBIN TIME 11.3 SECONDS (12.1-14.4)
[2019-01-06 13:28] LABS: PARTIAL THROMBOPLASTIN TIME 30.1 SECONDS (25.4-37.6)
== END ==
LOC: M LAB REF 12:58
PROVIDERS: ATTEND Internal Medicine
DX: Z01.818 Encounter for other preprocedural examination (principal); D69.8 Other specified hemorrhagic conditions; I70.213 Atherosclerosis of native arteries of extremities with intermittent claudication, bilateral legs

== ENCOUNTER → 2019-01-23 | Outpatient (REF) | payer MEDICARE, MEDICAID ==
[2019-01-26 18:55] LABS: PERCENT SATURATION 16.6 % (19.7-50.0)
== END ==
LOC: M LAB REF 16:43
PROVIDERS: ATTEND Internal Medicine
DX: D64.9 Anemia, unspecified (principal)

== ENCOUNTER 2019-04-29 09:31 | Emergency (ER) | payer MEDICARE, MEDICAID ==
[~2019-04-29] VITALS: Ht 172.7 cm; Wt 60.5 kg
[~2019-04-29 09:31] MED LIST changes: +BUPR150T3 PO; +CILO100T PO; +CLOP75TA2 PO; +OXYC1TAB23 PO
[2019-04-29] MEDS ORDERED: DOXY-350 PO (09:55)
[2019-04-29] MEDS ORDERED: ROBI1LIQ9 PO (09:55)
[2019-04-29] MEDS ORDERED: methylPREDNISolone INJ 125 MG/2 ML VIAL (J2930) IV ONE (10:30)
[2019-04-29 10:31] LABS: BASO # 0.1 10^3/uL (0.0-0.2); BASO % 0.3 % (0.0-1.0); EOS # 0.4 10^3/uL (0.0-0.5); EOS % 1.4 % (0.0-3.0); HEMATOCRIT 34.7 % (42.0-52.0); HEMOGLOBIN 11.2 g/dl (13.5-17.5); LYMPH # 2.9 10^3/uL (1.5-5.0); LYMPH % 11.4 % (24.0-44.0); MEAN CORPUSCULAR HEMOGLOBIN 31.7 pg (27.0-33.0); MEAN CORPUSCULAR HGB CONC 32.3 g/dl (32.0-36.5); MEAN CORPUSCULAR VOLUME 98.3 fl (80.0-96.0); MONO # 1.8 10^3/uL (0.0-0.8); MONO % 6.9 % (0.0-5.0); NEUTROPHILS # 20.2 10^3/uL (1.5-8.5); NEUTROPHILS % 78.8 % (36.0-66.0); PLATELET COUNT, AUTOMATED 420 10^3/uL (150-450); RED BLOOD COUNT 3.53 10^6/uL (4.30-6.10); WHITE BLOOD COUNT 25.7 10^3/uL (4.0-10.0)
[2019-04-29 10:48] LABS: INR 0.9; PROTHROMBIN TIME 11.9 SECONDS (11.8-14.0)
[2019-04-29] MEDS: IPRATROPIUM 0.5MG/ALBUTEROL 2.5MG INH SOL UD 3ML (DUONEB)(J7620) NEB SCH ×6 (10:54→12:34)
[2019-04-29 11:02] LABS: ABG HCO3 31.6 MEQ/L (22.0-26.0); ABG PARTIAL PRESSURE O2 155.9 mmHg (75.0-100.0); ABG STANDARD HCO3 27.1 MEQ/L (22.0-26.0); ABG TOTAL CO2 33.8 MEQ/L (23.0-31.0); ABG pH (ARTERIAL) 7.268 UNITS (7.350-7.450)
[2019-04-29 11:05] LABS: BLOOD UREA NITROGEN 21 MG/DL (7-18); CALCIUM LEVEL 8.8 MG/DL (8.8-10.2); CARBON DIOXIDE LEVEL 32 MEQ/L (21-32); CHLORIDE LEVEL 100 MEQ/L (98-107); CK-MB VALUE MASS 7.2 NG/ML (<3.6); CPK CREATINE PHOSPHOKINASE 105 U/L (39-308); CREATININE FOR GFR 1.03 MG/DL (0.70-1.30); GLOMERULAR FILTRATION RATE > 60.0 (>49); GLUCOSE, FASTING 299 MG/DL (70-100); MB/CK RELATIVE INDEX 6.86 (< OR =4); SODIUM LEVEL 138 MEQ/L (136-145); TROPONIN I 0.59 NG/ML (< 0.10)
[2019-04-29 11:10] LABS: ABG PARTIAL PRESSURE CO2 70.7 mmHg (35.0-45.0)
--- NOTE | 2019-04-29 11:12 | REP ---
CHEST, SINGLE VIEW: Single view of the chest performed and compared to a prior study of 09/23/2018. Mild interstitial fibrotic change is present. There is no acute infiltrate. The heart is normal in size. There is calcification of the thoracic aorta. Mediastinal silhouette is unchanged. Multiple sternal wires are present. There is a prostatic heart valve. IMPRESSION: Stable chronic findings without acute infiltrate. Electronically Signed by Kostas Mejia MD 04/30/2019 04:41 P
[2019-04-29 13:19] LABS: CK-MB VALUE MASS 8.7 NG/ML (<3.6); MB/CK RELATIVE INDEX 7.5 (< OR =4); TROPONIN I 0.71 NG/ML (< 0.10)
[2019-04-29] MEDS ORDERED: ACETAMINOPHEN TAB 650MG DOSE (2X325MG) PO ONE (14:00)
[2019-04-29 15:45] VITALS: BP 112/75
[2019-04-29] MEDS ORDERED: ALPRAZolam 0.25 MG TAB PO ONE (15:45)
--- NOTE | 2019-04-30 21:23 | ECGEPIP ---
[facility] - ED Test Date: 2019-04-29 Pat Name: DENICE ROSARIO Department: Room: - Gender: Male Document Scanner: NICKI : 1955 Requested By: Claudy Landa Order Number: [id number] Reading MD: Tonia Puentes Measurements Intervals [place] Rate: 146 P: [place]: 0 QRS: 103 QRSD: 136 T: 56 QT: 306 QTc: 477 Interpretive Statements ATRIAL FLUTTER/TACHYCARDIA WITH RAPID VENTRICULAR RESPONSE MARKED RIGHT AXIS DEVIATION RIGHT BUNDLE BRANCH BLOCK ANTEROSEPTAL MYOCARDIAL INFARCTION, PROBABLY OLD INCREASED RATE 09/23/18 Electronically Signed on 04-30-2019 21:23:28 EDT by Tonia Puentes
--- NOTE | 2019-04-30 21:25 | ECGEPIP ---
[facility] - ED Test Date: 2019-04-29 Pat Name: DENICE ROSARIO Department: Room: - Gender: Male Sales Vendor: NICKI : 1955 Requested By: Claudy Landa Order Number: [id number] Reading MD: Tonia Puentes Measurements Intervals [place] Rate: 145 P: [place]: 0 QRS: 102 QRSD: 142 T: 80 QT: 325 QTc: 505 Interpretive Statements ATRIAL FLUTTER/TACHYCARDIA WITH RAPID VENTRICULAR RESPONSE WITH ABERRANT CONDUCTION OR VENTRICULAR PREMATURE COMPLEXES MARKED RIGHT AXIS DEVIATION RIGHT BUNDLE BRANCH BLOCK ANTEROSEPTAL MYOCARDIAL INFARCTION, PROBABLY OLD SIMILAR 9:57 Electronically Signed on 04-30-2019 21:25:26 EDT by Tonia Puentes
== END 2019-04-29 16:00 | disposition short-term general hospital (02) ==
LOC: M ED 09:31 → EDBD 09:31 → M ED 16:00
DX: J44.1 Chronic obstructive pulmonary disease with (acute) exacerbation (principal); J96.22 Acute and chronic respiratory failure with hypercapnia; I25.9 Chronic ischemic heart disease, unspecified; I45.10 Unspecified right bundle-branch block; I10 Essential (primary) hypertension; I25.10 Atherosclerotic heart disease of native coronary artery without angina pectoris; F41.9 Anxiety disorder, unspecified; D50.9 Iron deficiency anemia, unspecified; R91.1 Solitary pulmonary nodule; Z79.899 Other long term (current) drug therapy; Z79.82 Long term (current) use of aspirin; F17.210 Nicotine dependence, cigarettes, uncomplicated
CPT/HCPCS: 36415; 36600; 71045; 80048; 82550; 82553; 82803; 83605; 84484; 85025; 85610; 87040; 93005; 93041; 94640; 96374; 99285; J2930